=== PATIENT | female | born 1970 | race Caucasian/White ===

== ENCOUNTER 2016-12-26 19:50 | Emergency (ER) | payer OTHER ==
[2016-12-26 20:05] VITALS: BP 140/86; PULSE 92; TEMP 99.8; BMI 54.0
[2016-12-26] MEDS ORDERED: KETOROLAC TROMETHAMINE 60 MG/2 ML VIAL IM ONE (21:25)
[2016-12-26] MEDS ORDERED: KETOROLAC TROMETHAMINE 60 MG/2 ML VIAL ONE (21:26)
--- NOTE | 2016-12-26 21:53 | PDOC ---
History of Present Illness - General Chief Complaint: Pain Stated Complaint: PAIN Time Seen by Provider: 12/26/16 20:59 History Source: Patient Exam Limitations: No Limitations - History of Present Illness Initial Comments: 12/26/16 21:42 Patient is a 46-year-old female, morbidly obese, presents for pain to left jaw and preauricular left pain. Was diagnosed with TMJ, has been evaluated by multiple doctors. Was treated in the past with Augmentin for possible sinus infection, robaxin, and is taking chronic pain management, Percocet for lower back pain. Patient was seen in urgent care and was given valium which seemed to help a little, currently has no more medication. Denies headache, no fever, no palpable masses. There is no facial edema, no erythema, no lymphadenopathy. No visual disturbance. Good ROM to jaw. Reports increased pain for thelast two nights. Patient with multiple piercings to face and lower lip. No signs of cellulitis. Patient laughing in room with mother. Past Medical History: Denies. Allergies: No known allergies Medications: Percocet. Family History: Non-contributory Social History: Denies smoking, alcohol use, or IVDU Review of Systems GENERAL/CONSTITUTIONAL: No fever or chills. No weakness. No weight change. HEAD, EYES, EARS, NOSE AND THROAT: No change in vision. No ear pain or discharge. No sore throat. CARDIOVASCULAR: No chest pain or shortness of breath. RESPIRATORY: No cough, wheezing, or hemoptysis. GASTROINTESTINAL: No nausea, vomiting, diarrhea or constipation. No rectal bleeding. GENITOURINARY: No dysuria, frequency, or change in urination. MUSCULOSKELETAL: No joint or muscle swelling or pain. No neck or back pain. SKIN AND BREASTS: No rash or easy bruising. NEUROLOGIC: No headache, vertigo, loss of consciousness, or loss of sensation. PSYCHIATRIC: No depression or anxiety. ENDOCRINE: No increased thirst. No abnormal weight change. HEMATOLOGIC/LYMPHATIC: No anemia, easy bleeding, or history of blood clots. ALLERGIC/IMMUNOLOGIC: No hives or skin allergy. No latex allergy. Physical Exam: GENERAL: The patient is awake, alert, and fully oriented, in no acute distress. HEAD: Normal with no signs of trauma. EYES: Pupils equal, round and reactive to light, extraocular movements intact, sclera anicteric, conjunctiva clear. ENT: Ears normal, nares patent, oropharynx clear without exudates. Moist mucous membranes. No uvula deviation. Pain only elicited to left side of jaw when opening and closing mouth at the TMJ. No facial edema. No erythema. No sinus pressure or pain NECK: Normal range of motion, supple without lymphadenopathy, JVD, or masses. LUNGS: Breath sounds equal, clear to auscultation bilaterally. No wheezes, and no crackles. HEART: Regular rate and rhythm, normal S1 and S2 without murmur, rub or gallop. ABDOMEN: Soft, nontender, normoactive bowel sounds. No guarding, no rebound. No masses. No bruising or abrasions MUSCULOSKELETAL: Normal range of motion, no edema. No clubbing or cyanosis. No cords, erythema, or tenderness. No CVA Tenderness with fist. NEUROLOGICAL: Cranial nerves II through XII grossly intact. Normal speech, normal gait. PSYCH: Normal mood, normal affect. SKIN: Warm, Dry, normal turgor, no rashes or lesions noted. Past History - Past Medical History Allergies/Adverse Reactions: Allergies Allergy/AdvReac Type Severity Reaction Status Date / Time No Known Allergies Allergy Verified 12/26/16 20:05 Home Medications: Ambulatory Orders Diazepam [Valium] 5 mg PO Q8H #12 tablet MDD 3 12/26/16 Naproxen [Naprosyn -] 500 mg PO BID #20 tablet 12/26/16 Anemia: No Asthma: No Cancer: No Cardiac Disorders: No CVA: No COPD: No CHF: No Dementia: No Diabetes: No GI Disorders: Yes (GERD) Disorders: No HTN: No Hypercholesterolemia: No Liver Disease: No Seizures: No Thyroid Disease: No Other medical history: chronic back pain on percocet 10mg - Surgical History Abdominal Surgery: No Appendectomy: No Cardiac Surgery: No Cholecystectomy: Yes Lung Surgery: No Neurologic Surgery: No Orthopedic Surgery: No - Immunization History Immunization Up to Date: Yes - Suicide/Smoking/Psychosocial Hx Smoking History: Current every day smoker Have you smoked in the past 12 months: Yes Number of Cigarettes Smoked Daily: 15 Information on smoking cessation initiated: No 'Breaking Loose' booklet given: 02/06/15 Hx Alcohol Use: No Drug/Substance Use Hx: No Substance Use Type: None Hx Substance Use Treatment: No *Physical Exam - Vital Signs Last Vital Signs Temp Pulse Resp BP Pulse Ox 99.8 F H 92 H 18 140/86 99 12/26/16 20:02 12/26/16 20:02 12/26/16 20:02 12/26/16 20:02 12/26/16 20:02 ED Treatment Course - Medications Given in the ED: ED Medications Discontinued Medications Generic Name Dose Route Start Last Admin Trade Name Jyoti PRN Reason Stop Dose Admin Ketorolac Tromethamine 60 mg 12/26/16 21:25 12/26/16 21:29 Toradol Injection - IM 12/26/16 21:26 60 mg ONCE ONE Administration Medical Decision Making - Medical Decision Making 12/26/16 22:33 A/P: Patient here for evaluation of chronic TMJ is on chronic pain management which does not seem to be resolving pain in the emergency Department we will give Toradol 60 mg IM and Flexeril 10, will DC patient on Naprosyn and Valium with follow-up with oral maxillofacial surgery. Patient reports that she has an appointment in January. Warm compresses to face also has an appointment with chronic pain management on Wednesday. *DC/Admit/Observation/Transfer Diagnosis at time of Disposition: Chronic TMJ pain - Discharge Dispostion Disposition: HOME Condition at time of disposition: Good Admit: No - Prescriptions Prescriptions: Naproxen [Naprosyn -] 500 mg PO BID #20 tablet Diazepam [Valium] 5 mg PO Q8H #12 tablet MDD 3 - Referrals Referrals: Anna Gonzalez MD [Primary Care Provider] - - Patient Instructions Printed Discharge Instructions: TMJ Syndrome (Alternative Therapy) Additional Instructions: Please follow-up with oral maxillary facial surgery. If any increased fever, facial edema, swelling, redness, or any other concerns return immediately to ER
[2016-12-26] MEDS ORDERED: CYCLOBENZAPRINE HCL 10 MG TABLET (FP) PO ONE (22:22)
[2016-12-26] MEDS ORDERED: CYCLOBENZAPRINE HCL 10 MG TABLET (FP) ONE (22:23)
== END 2016-12-26 22:39 | disposition home or self-care (01) ==
LOC: JERFT 19:50
PROC: 3E0233Z Introduction of Anti-inflammatory into Muscle, Percutaneous Approach (ICD-10-PCS; principal; 2016-12-26)
DX: M26.622 Arthralgia of left temporomandibular joint (principal); F17.210 Nicotine dependence, cigarettes, uncomplicated
CPT/HCPCS: 96372; 99281-25

== ENCOUNTER 2017-04-12 09:54 | Inpatient (IN) | payer OTHER ==
[2017-04-12 10:07] VITALS: BMI 54.0
--- NOTE | 2017-04-12 11:13 | PDOC ---
History of Present Illness - General Chief Complaint: Pain, Acute Stated Complaint: ABD PAIN Time Seen by Provider: 04/12/17 11:06 History Source: Patient Exam Limitations: No Limitations - History of Present Illness Travel History: No Initial Comments: 04/12/17 11:20 46 yr female with known umbilical hernia states she is scheduled for surgery tomorrow with was told by the hospital to come in threw ER for admission. Pt states she has 10/10 pain to the abdomen around the umbilicus. Pt admits to having chills last night denies diarrhea or vomiting . no urinary complaints. medical history of reflux surgical history for csectionx2 gallbladder Past History - Past Medical History Allergies/Adverse Reactions: Allergies Allergy/AdvReac Type Severity Reaction Status Date / Time No Known Allergies Allergy Verified 04/12/17 10:03 Home Medications: Ambulatory Orders Oxycodone HCl/Acetaminophen [Percocet 5-325 mg Tablet] 1 - 2 tab PO Q4H Sumatriptan Succinate [Imitrex -] 50 mg PO PRN 04/12/17 Docusate Sodium [Colace -] 100 mg PO TID #90 capsule 04/13/17 Anemia: No Asthma: No Cancer: No Cardiac Disorders: No CVA: No COPD: No CHF: No Dementia: No Diabetes: No GI Disorders: Yes (GERD) Disorders: No HTN: No Hypercholesterolemia: No Liver Disease: No Seizures: No Thyroid Disease: No - Surgical History Abdominal Surgery: Yes (gallbladder, csection x2 ) Appendectomy: No Cardiac Surgery: No Cholecystectomy: Yes Lung Surgery: No Neurologic Surgery: No Orthopedic Surgery: No - Reproductive History LMP comment: 04/02/17 LMP Normal: Yes Is Patient Now?: No - Immunization History Immunization Up to Date: Yes - Suicide/Smoking/Psychosocial Hx Smoking History: Former smoker Have you smoked in the past 12 months: Yes Number of Cigarettes Smoked Daily: 15 Information on smoking cessation initiated: No 'Breaking Loose' booklet given: 02/06/15 Hx Alcohol Use: No Drug/Substance Use Hx: No Substance Use Type: None Hx Substance Use Treatment: No Review of Systems - Review of Systems Able to Perform ROS?: Yes Is the patient limited Guatemalan proficient: No Constitutional: No: Symptoms Reported HEENTM: No: Symptoms Reported Respiratory: No: Symptoms reported Cardiac (ROS): No: Symptoms Reported ABD/GI: Yes: Symptoms Reported : No: Symptoms Reported Musculoskeletal: No: Symptoms Reported Integumentary: No: Symptoms Reported Neurological: No: Symptoms reported *Physical Exam - Vital Signs Last Vital Signs Temp Pulse Resp BP Pulse Ox 99 F 81 19 148/77 98 04/12/17 10:03 04/12/17 10:03 04/12/17 10:03 04/12/17 10:03 04/12/17 10:03 - Physical Exam General Appearance: Yes: Nourished, Appropriately Dressed, Obese HEENT: positive: EOMI, SEVEN, Normal ENT Inspection, TMs Normal, Pharynx Normal Neck: positive: Supple. negative: Tender Respiratory/Chest: positive: Lungs Clear, Normal Breath Sounds Cardiovascular: positive: Regular Rhythm, Regular Rate Gastrointestinal/Abdominal: positive: Normal Bowel Sounds, Tender (umbilical area ), Soft, Guarding. negative: Rebound Musculoskeletal: positive: Normal Inspection Extremity: positive: Normal Capillary Refill, Normal Inspection, Normal Range of Motion Integumentary: positive: Normal Color, Dry, Warm Neurologic: positive: shoe dresser II-XII NML intact, Fully Oriented, Alert, Normal Mood/ Affect, Normal Response, Motor Strength / ED Treatment Course - LABORATORY CBC & Chemistry Diagram: 04/13/17 16:38 04/12/17 12:00 Medical Decision Making - Medical Decision Making 04/12/17 11:14 cc: abd pain worse the past month sent to ER for hernia repair by 04/12/17 11:19 04/12/17 11:28 spoke with Shannon OPERATING ENGINEER APPRENTICE works with is aware pt is here states to admit to and do preop , pt for OR tomorrow. *DC/Admit/Observation/Transfer Diagnosis at time of Disposition: Intractable abdominal pain - Discharge Dispostion Condition at time of disposition: Fair Admit: Yes - Prescriptions - Referrals - Patient Instructions - Post Discharge Activity
[2017-04-12 12:10] LABS: HEMATOCRIT 42.8 % (32.4-45.2); HEMOGLOBIN 13.7 GM/dL (10.7-15.3); MCH 27.6 pg (25.7-33.7); MCHC 32.1 g/dl (32.0-36.0); MEAN CELL VOLUME 85.9 fl (80-96); MEAN PLT VOLUME 8.4 fl (7.5-11.1); PLATELET COUNT 327 K/MM3 (134-434); RBC 4.98 M/mm3 (3.60-5.2); RDW 14.8 % (11.6-15.6); WHITE BLOOD COUNT 12.5 K/mm3 (4.0-10.0)
--- NOTE | 2017-04-12 12:21 | PDOC ---
*Physical Exam - Vital Signs Last Vital Signs Temp Pulse Resp BP Pulse Ox 99 F 81 19 148/77 98 04/12/17 10:03 04/12/17 10:03 04/12/17 10:03 04/12/17 10:03 04/12/17 10:03 Heart Score/ECG Review #1 General ECG Interpretation: Sinus Rhythm, Normal Rate (69), Normal Intervals ( qtc 420, LVH), No acute ischemic changes (baseline artifact, no acute changes) ED Treatment Course - LABORATORY CBC & Chemistry Diagram: 04/12/17 12:00 04/12/17 12:00 Medical Decision Making - Medical Decision Making 04/12/17 12:18 Patient seen and evaluated with the nurse practitioner. I agree with the overall evaluation, assessment, and management with the following summary of visit: 46-year-old female with worsening symptoms of umbilical hernia, scheduled for or. Labs, pain control Admitted to Dr. Ryan *DC/Admit/Observation/Transfer Diagnosis at time of Disposition: Intractable abdominal pain - Discharge Dispostion Condition at time of disposition: Fair - Referrals - Patient Instructions - Post Discharge Activity
[2017-04-12 12:30] LABS: ALBUMIN 3.4 g/dl (3.4-5.0); ALK PHOS 104 U/L (45-117); ANION GAP 7 (8-16); BILIRUBIN,TOTAL 0.4 mg/dL (0.2-1.0); BLOOD UREA NITROGEN 8 mg/dL (7-18); CALCIUM 8.9 mg/dL (8.5-10.1); CHLORIDE 102 mmol/L (98-107); CO2 30 mmol/L (21-32); CREATININE 0.7 mg/dL (0.55-1.02); GLUCOSE,RANDOM 144 mg/dL (74-106); POTASSIUM 3.7 mmol/L (3.5-5.1); SGOT/AST 8 U/L (15-37); SGPT/ALT 31 U/L (12-78); SODIUM 139 mmol/L (136-145); TOT PROT 7.7 g/dl (6.4-8.2)
[2017-04-12 12:33] LABS: INR 1.14 (0.82-1.09); PROTHROMBIN TIME (PATIENT) 12.9 SEC (9.98-11.88)
[2017-04-12 12:36] LABS: ACTIVATED PTT 27.3 SECONDS (26.9-34.4)
[2017-04-12] MEDS ORDERED: ONDANSETRON 4 MG/2 ML VIAL IVPUSH ONE (12:52)
[2017-04-12] MEDS ORDERED: morphine CARPU-JECT 4 MG/1 ML DISP.SYRIN IVPUSH STA (12:52)
[2017-04-12] MEDS ORDERED: morphine CARPU-JECT 10 MG/1 ML DISP.SYRIN ONE (13:06)
[2017-04-12] MEDS ORDERED: ONDANSETRON 4 MG/2 ML VIAL ONE (13:06)
--- NOTE | 2017-04-12 14:40 | CONSULT ---
Consult Consult Specialty:: internal medicine - History of Present Illness Chief Complaint: abd pain History of Present Illness: was scheduled for umbilical hernia repeair, pain got progressively worse so pt came to er for eval and pain mgmnt. - History Source History Provided By: Patient Limitations to Obtaining History: No Limitations - Past Medical History Gastrointestinal: Yes: Other (h/o H.pylori treated in 2013) ...LMP: 02/27/15 ...LMP Comment: 04/02/17 ...: No Infectious Disease: Yes: MRSA (skin infection in past) Musculoskeletal: Yes: Chronic low back pain Endocrine: Yes: Other (morbid obesity) - Past Surgical History Past Surgical History: Yes: Cholecystectomy, (x2) - Alcohol/Substance Use Hx Alcohol Use: No - Smoking History Smoking history: Former smoker Have you smoked in the past 12 months: Yes Aproximately how many cigarettes per day: 15 - Social History Usual Living Arrangement: With Spouse ADL: Independent History of Recent Travel: No Home Medications - Allergies Allergies/Adverse Reactions: Allergies Allergy/AdvReac Type Severity Reaction Status Date / Time No Known Allergies Allergy Verified 04/12/17 10:03 - Home Medications Home Medications: Ambulatory Orders Oxycodone HCl/Acetaminophen [Percocet 5-325 mg Tablet] 1 - 2 tab PO Q4H Sumatriptan Succinate [Imitrex -] 50 mg PO PRN 04/12/17 Family Disease History - Family Disease History Family Disease History: Diabetes: Mother (cervical ca), Heart Disease: Father, Mother Review of Systems - Review of Systems Neck: reports: No Symptoms Cardiovascular: reports: No Symptoms Respiratory: reports: No Symptoms Gastrointestinal: reports: Abdominal Pain, Diarrhea Musculoskeletal: reports: Back Pain Psychiatric: reports: Anxiety Physical Exam Vital Signs: Vital Signs Temperature 99 F 04/12/17 10:03 Pulse Rate 81 04/12/17 10:03 Respiratory Rate 19 04/12/17 10:03 Blood Pressure 148/77 04/12/17 10:03 O2 Sat by Pulse Oximetry (%) 98 04/12/17 10:03 Constitutional: Yes: Calm, Obese Eyes: Yes: Conjunctiva Clear HENT: Yes: Atraumatic, Normocephalic Neck: Yes: Trachea Midline Cardiovascular: Yes: Regular Rate and Rhythm Respiratory: Yes: CTA Bilaterally Gastrointestinal: Yes: Abdomen, Obese, Hypoactive Bowel Sounds, Other (tender non-reducible umbilical hernia) Labs: CBC, BMP 04/12/17 12:00 04/12/17 12:00 Problem List - Problems (1) Back pain Code(s): M54.9 - DORSALGIA, UNSPECIFIED Qualifiers: Back pain location: low back pain Chronicity: chronic (2) Intractable abdominal pain Code(s): R10.9 - UNSPECIFIED ABDOMINAL PAIN (3) Umbilical hernia without obstruction or gangrene Code(s): K42.9 - UMBILICAL HERNIA WITHOUT OBSTRUCTION OR GANGRENE Assessment/Plan No medical contraindication to ventral hernia repair.
[2017-04-12 17:32] LABS: URINE APPEARANCE SLCLOUDY; URINE BILIRUBIN NEGATIVE (NEGATIVE); URINE BLOOD 1+ (NEGATIVE); URINE COLOR YELLOW; URINE GLUCOSE (UA) NEGATIVE (NEGATIVE); URINE KETONE NEGATIVE (NEGATIVE); URINE LEUK ESTERASE NEGATIVE (NEGATIVE); URINE NITRITE NEGATIVE (NEGATIVE); URINE PROTEIN NEGATIVE (NEGATIVE); URINE UROBILINOGEN NEGATIVE mg/dL (0.2-1.0)
[2017-04-12 17:56] LABS: HCG,QUALITATIVE URINE NEGATIVE
[2017-04-12 18:03] LABS: EPI CELLS FEW /HPF (FEW); URINE HYALINE CAST 2 /lpf; URINE MUCUS MANY
[2017-04-12] MEDS ORDERED: ACETAMINOPHEN 325 MG TABLET (FP) PO PRN (18:52)
[2017-04-12] MEDS: oxyCODONE HCL 5 MG TABLET PO PRN (19:08)
--- NOTE | 2017-04-12 22:01 | EKG ---
Test Reason : Blood Pressure : / mmHG Vent. Rate : 069 BPM Atrial Rate : 069 BPM P-R Int : 152 ms QRS Dur : 102 ms QT Int : 392 ms P-R-T Axes : 009 -18 020 degrees QTc Int : 420 ms NORMAL SINUS RHYTHM MINIMAL VOLTAGE CRITERIA FOR LVH, MAY BE NORMAL VARIANT NONSPECIFIC ST ABNORMALITY ABNORMAL ECG WHEN COMPARED WITH ECG OF 06-FEB-2015 11:25, NO SIGNIFICANT CHANGE WAS FOUND Confirmed by EMILIA WALLACE, WIL ([id number]) on 04/12/2017 10:01:15 PM Referred By: Confirmed By:WIL NIETO MD
[2017-04-13] MEDS: SODIUM CHLORIDE 1,000 ML IV SCH (00:22)
[2017-04-13] MEDS: HYDROmorphone HCL CARPU-JECT 2 MG/1 ML DISP.SYRIN IVPB PRN ×3 (11:32→23:33)
--- NOTE | 2017-04-13 13:00 | HP ---
Admitting History and Physical - Admission Chief Complaint: Umbilical pain History Source: Patient, Medical Record Limitations to Obtaining History: No Limitations - Past Medical History Gastrointestinal: Yes: Other (h/o H.pylori treated in 2013) ...LMP: 04/07/17 ...LMP Comment: 04/02/17 ...: No Infectious Disease: Yes: MRSA (skin infection in past) Musculoskeletal: Yes: Chronic low back pain Endocrine: Yes: Other (morbid obesity) - Past Surgical History Past Surgical History: Yes: Cholecystectomy, (x2) - Smoking History Smoking history: Former smoker Have you smoked in the past 12 months: Yes Aproximately how many cigarettes per day: 15 If you are a former smoker, when did you quit?: 05/2016 - Alcohol/Substance Use Hx Alcohol Use: No - Social History ADL: Independent History of Recent Travel: No Home Medications - Allergies Allergies/Adverse Reactions: Allergies Allergy/AdvReac Type Severity Reaction Status Date / Time No Known Allergies Allergy Verified 04/12/17 10:03 - Home Medications Home Medications: Ambulatory Orders Oxycodone HCl/Acetaminophen [Percocet 5-325 mg Tablet] 1 - 2 tab PO Q4H Sumatriptan Succinate [Imitrex -] 50 mg PO PRN 04/12/17 Docusate Sodium [Colace -] 100 mg PO TID #90 capsule 04/13/17 Family Disease History - Family Disease History Family Disease History: Diabetes: Mother (cervical ca), Heart Disease: Father, Mother Review of Systems - Review of Systems Constitutional: denies: Chills, Fever HENT: reports: No Symptoms Neck: reports: No Symptoms Cardiovascular: denies: Chest Pain Respiratory: denies: Cough Gastrointestinal: reports: Abdominal Pain. denies: Dysphagia, Vomiting Neurological: denies: Change in LOC Pain Intensity: 4 Physical Examination Vital Signs: Vital Signs Temperature 98.4 F 04/13/17 10:00 Pulse Rate 70 04/13/17 10:00 Respiratory Rate 20 04/13/17 10:00 Blood Pressure 105/77 04/13/17 10:00 O2 Sat by Pulse Oximetry (%) 97 04/12/17 21:00 Constitutional: Yes: Calm HENT: Yes: WNL Neck: Yes: Supple Cardiovascular: Yes: Regular Rate and Rhythm Respiratory: Yes: Regular Gastrointestinal: Yes: Soft, Abdomen, Obese, Tenderness (Umbilical), Other (+ Umbilical hernia with tenderness). No: Tenderness, Rebound Neurological: Yes: Alert, Oriented Labs: CBC, BMP 04/12/17 12:00 04/12/17 12:00 Problem List - Problems (1) Intractable abdominal pain Code(s): R10.9 - UNSPECIFIED ABDOMINAL PAIN (2) Umbilical hernia without obstruction or gangrene Code(s): K42.9 - UMBILICAL HERNIA WITHOUT OBSTRUCTION OR GANGRENE Assessment/Plan 46 female with umbilical hernia causing pain For robotic possible open repair with possible mesh Risks and benefits explained Understands and agrees
[2017-04-13] MEDS ORDERED: BUPIVACAINE HCL/PF 0.5% (5MG/ML) 10 ML VIAL ONE (13:24)
[2017-04-13] MEDS ORDERED: MIDAZOLAM HCL 2 MG/2 ML SINGLE DOSE VIAL ONE (13:43)
[2017-04-13] MEDS ORDERED: fentaNYL CITRATE 250 MCG/5 ML VIAL ONE (13:45)
[2017-04-13] MEDS ORDERED: PROPOFOL 20 ML ONE ×2 (13:47→13:55)
[2017-04-13] MEDS ORDERED: ROCURONIUM BROMIDE 50 MG/5 ML VIAL ONE ×2 (13:47→14:54)
[2017-04-13] MEDS ORDERED: SUCCINYLCHOLINE CHLORIDE 200 MG/10 ML VIAL ONE (13:47)
[2017-04-13] MEDS ORDERED: ceFAZolin SODIUM 1 GM VIAL IVPB ONE (13:55)
[2017-04-13] MEDS ORDERED: LIDOCAINE HCL/PF 2% SDV 5ML VIAL ONE (14:09)
[2017-04-13] MEDS ORDERED: DEXAMETHASONE SOD PHOSPHATE 4 MG/1 ML VIAL ONE (14:09)
[2017-04-13] MEDS ORDERED: LIDOCAINE HCL 2% JELLY (5 ML/TUBE) ONE (14:09)
[2017-04-13] MEDS ORDERED: GLYCOPYRROLATE 0.2 MG/1 ML VIAL ONE ×2 (14:09→15:31)
[2017-04-13] MEDS ORDERED: ceFAZolin SODIUM 1 GM VIAL ONE (14:10)
[2017-04-13] MEDS ORDERED: NEOSTIGMINE METHYLSULFATE 0.5 MG/ML - 10 ML MDV ONE (15:32)
[2017-04-13] MEDS ORDERED: KETOROLAC TROMETHAMINE 30 MG/1 ML VIAL ONE (15:35)
--- NOTE | 2017-04-13 15:43 | OP ---
Operative Note - Note: Operative Date: 04/13/17 Pre-Operative Diagnosis: Incarcerated umbilical hernia Operation: Robotic incarcerated umbilical hernia repair with mesh. Robotic incarcerated incisional hernia repair with mesh. Diagnostic laparoscopy. Robotic extensive lysis of adhesions Findings: Incarcerated umbilical and incisional hernias Post-Operative Diagnosis: Other (Incarcerated umbilical hernia, incarcerated incisional hernia) Surgeon: Cali Ryan Insurance Assistant: Caroline Peralta Anesthesia: General Specimens Removed: None Estimated Blood Loss (mls): 5 Operative Report Dictated: Yes
[2017-04-13] MEDS ORDERED: ONDANSETRON 4 MG/2 ML VIAL IVPB PRN (15:44)
[2017-04-13] MEDS ORDERED: ONDANSETRON 4 MG/2 ML VIAL IVPUSH PRN (15:52)
[2017-04-13] MEDS ORDERED: HYDROmorphone HCL CARPU-JECT 2 MG/1 ML DISP.SYRIN ONE (15:53)
[2017-04-13] MEDS: HYDROmorphone HCL CARPU-JECT 2 MG/1 ML DISP.SYRIN IVPUSH PRN ×4 (15:53→16:23)
--- NOTE | 2017-04-13 16:25 | SURG ---
Surgery Implant Polisher Note Implant Polisher: Caroline Peralta PA-C Date of Service: 04/13/17 Diagnosis: Incarcerated umbilical hernia Procedure: Robotic incarcerated umbilical hernia repair with mesh. Robotic incarcerated incisional hernia repair with mesh. I was present for the entirety of the operative procedure. For further detail, please refer to operative report. Visit type - Case Type Case Type: ED Admission - Emergency Emergency Visit: Yes ED Registration Date: 04/12/17 Care time: The patient presented to the Emergency Department on the above date and was hospitalized for further evaluation of their emergent condition. - New patient This patient is new to me today: Yes Date on this admission: 04/13/17
[2017-04-13 16:58] LABS: BASO % 0.2 % (0-2.0); EOS % 0.3 % (0-4.5); HEMATOCRIT 40.8 % (32.4-45.2); HEMOGLOBIN 13.4 GM/dL (10.7-15.3); LYMPH % 7.8 % (8-40); MCH 28.6 pg (25.7-33.7); MCHC 32.9 g/dl (32.0-36.0); MEAN CELL VOLUME 86.9 fl (80-96); MEAN PLT VOLUME 8.7 fl (7.5-11.1); MONO % 2.3 % (3.8-10.2); NEUT % 89.4 % (42.8-82.8); PLATELET COUNT 307 K/MM3 (134-434); RDW 15.2 % (11.6-15.6)
[2017-04-13 17:26] LABS: ANION GAP 10 (8-16); BLOOD UREA NITROGEN 10 mg/dL (7-18); CALCIUM 8.2 mg/dL (8.5-10.1); CHLORIDE 106 mmol/L (98-107); CO2 25 mmol/L (21-32); CREATININE 0.7 mg/dL (0.55-1.02); GLUCOSE,RANDOM 128 mg/dL (74-106); POTASSIUM 3.9 mmol/L (3.5-5.1); SODIUM 141 mmol/L (136-145)
[2017-04-13] MEDS: LACTATED RINGERS SOLUTION 1,000 ML IV SCH (18:47)
[2017-04-14] MEDS: HYDROmorphone HCL CARPU-JECT 2 MG/1 ML DISP.SYRIN IVPB PRN (05:23)
[2017-04-14] MEDS: SODIUM CHLORIDE 1,000 ML IV SCH (06:06)
[2017-04-14 08:27] LABS: BASO % 0.2 % (0-2.0); HEMATOCRIT 41.4 % (32.4-45.2); HEMOGLOBIN 13.1 GM/dL (10.7-15.3); LYMPH % 13.9 % (8-40); MCH 27.3 pg (25.7-33.7); MCHC 31.5 g/dl (32.0-36.0); MEAN CELL VOLUME 86.5 fl (80-96); MEAN PLT VOLUME 8.9 fl (7.5-11.1); MONO % 5.5 % (3.8-10.2); NEUT % 80.4 % (42.8-82.8); PLATELET COUNT 342 K/MM3 (134-434); RBC 4.79 M/mm3 (3.60-5.2); RDW 15.1 % (11.6-15.6); WHITE BLOOD COUNT 16.3 K/mm3 (4.0-10.0)
--- NOTE | 2017-04-14 08:33 | PN ---
Progress Note (short form) - Note Progress Note: s/p surgery tolerated procedure well. Vital Signs Period Temp Pulse Resp BP Sys/Corbett Pulse Ox Last 24 Hr 98 F-98.7 F 62-84 16-20 94-127/44-86 94-96 S1S2 RRR lungs cta abd in binder, tender no edema aaox3 s/p robotic incarcerated umbilical hernia repair with mesh POD#1 morbid obesity medically stable dc planning as per sg. Problem List - Problems (1) Back pain Code(s): M54.9 - DORSALGIA, UNSPECIFIED Qualifiers: Back pain location: low back pain Chronicity: chronic (2) Intractable abdominal pain Code(s): R10.9 - UNSPECIFIED ABDOMINAL PAIN (3) Umbilical hernia without obstruction or gangrene Code(s): K42.9 - UMBILICAL HERNIA WITHOUT OBSTRUCTION OR GANGRENE
[2017-04-14 09:08] LABS: CHLORIDE 103 mmol/L (98-107); POTASSIUM 4.2 mmol/L (3.5-5.1); SODIUM 137 mmol/L (136-145)
[2017-04-14 09:12] LABS: ANION GAP 9 (8-16); BLOOD UREA NITROGEN 12 mg/dL (7-18); CALCIUM 8.5 mg/dL (8.5-10.1); CO2 25 mmol/L (21-32); CREATININE 0.6 mg/dL (0.55-1.02); GLUCOSE,RANDOM 105 mg/dL (74-106)
--- NOTE | 2017-04-14 09:15 | OP ---
DATE OF OPERATION: 04/13/2017 SURGEON: Cali Ryan MD INDUSTRIAL ELECTRICAL TECHNICIAN: HALLIE Aggarwal PREOPERATIVE DIAGNOSIS: Incarcerated umbilical hernia. POSTOPERATIVE DIAGNOSES: 1. Incarcerated umbilical hernia. 2. Incarcerated incisional hernia. 3. Intra-abdominal adhesions. PROCEDURE: Diagnostic laparoscopy, robotic extensive lysis of adhesions, robotic repair of incarcerated umbilical hernia with mesh, robotic repair of incarcerated incisional hernia with mesh. SPECIMENS: None. ESTIMATED BLOOD LOSS: 5 mL DRAINS: None. ANESTHESIA: GET. REASON FOR PROCEDURE: This is a 46-year-old female who presented to the emergency room for abdominal pain. The pain was located near the level of her umbilicus. On exam, she was noted to have a hernia that was consistent with an umbilical hernia with pain and incarceration. Because of this, she was consented for robotic, possible open repair of her incarcerated umbilical hernia with possible mesh, possible open. The risks and benefits of the procedure were explained. These included bleeding, infection, recurrence of hernia, DE, DVT, PE, injury to surrounding abdominal structures, seroma, hematoma, injury to bowel, fistula, perforation as some of the complications. She understood and signed informed consent. DESCRIPTION OF PROCEDURE: Patient was placed supine on the operating room table. Patient underwent general endotracheal intubation. The patient was placed in a fitzpatrick bag device, and a bump was placed under the left portion of her back. The area was prepped and draped in usual sterile fashion. Timeout was performed. Incision was made in the left lateral abdominal wall. Veress needle was inserted. Pneumoperitoneum was established. Subsequently, the Veress needle was removed, and an 8-mm robotic optical trocar was placed under direct visualization with a laparoscope. Two subsequent 8-mm robotic trocars were placed, one in the left lower quadrant and one in the left upper quadrant. The robot was brought over to the field and docked. At the console, dissection was performed. It was immediately noted there were dense intra-abdominal adhesions. Extensive lysis of adhesions was performed robotically. This was needed in order to visualize the hernia as well as to reduce all hernia contents which included both omentum as well as bowel. In addition, there were noted to be 2 hernia defects, not one. This was at the level of the umbilicus as well as superiorly near level of the prior incision. Both hernia contents were reduced and the fascia freed circumferentially. At this point, both fascial defects were closed using a No. 1 V-Loc suture. The fascia was noted to be reapproximated well. A 15 cm x 10 cm Symbotex mesh was then chosen and inserted into the abdominal cavity. This was secured circumferentially using AbsorbaTacks covering both sites of hernia repair. Hemostasis was noted. The mesh was noted to be in good position. Pneumoperitoneum was desufflated. All trocars were removed. The skin incisions were closed with 4-0 Biosyn. Marcaine was injected. Sterile dressings were applied. An abdominal binder was applied. The patient tolerated the procedure well, was transferred to recovery room in stable condition. Timo [id number]
--- NOTE | 2017-04-14 09:37 | DS ---
Physical Exam: SUBJECTIVE: POD#1 robotic assisted incisional hernia repair with mesh. Patient seen and examined at bedside with no complaints. Patient states pain is controlled and she is ambulating, voiding and tolerating a regular diet. She denies any CP, SOB, N/V/D, or dizziness. OBJECTIVE: Vital Signs Temperature 98 F 04/14/17 05:57 Pulse Rate 62 04/14/17 05:57 Respiratory Rate 20 04/14/17 05:57 Blood Pressure 127/86 04/14/17 05:57 O2 Sat by Pulse Oximetry (%) 96 04/13/17 21:00 PHYSICAL EXAM GENERAL: The patient is awake, alert, and fully oriented, in no acute distress. HEAD: Normal with no signs of trauma. EYES: PERRL, extraocular movements intact, sclera anicteric, conjunctiva clear. NECK: Trachea midline, full range of motion, supple. LUNGS: unlabored resp on RA with no accessory muscle use. ABDOMEN: Obese, Soft, mildly tender to palpation appropriate to status, nondistended, Incisions c/d/i with no evidence of d/c, surrounding tissue intact EXTREMITIES: 2+ pulses, warm, well-perfused NEUROLOGICAL: Cranial nerves II through XII grossly intact. Normal speech, gait not observed. PSYCH: Normal mood, normal affect. SKIN: Warm, dry, normal turgor, no rashes or lesions noted. LABS CBC,CMP WBC 16.3 K/mm3 (4.0-10.0) H 04/14/17 06:30 RBC 4.79 M/mm3 (3.60-5.2) 04/14/17 06:30 Hgb 13.1 GM/dL (10.7-15.3) 04/14/17 06:30 Hct 41.4 % (32.4-45.2) 04/14/17 06:30 MCV 86.5 fl (80-96) 04/14/17 06:30 MCH 27.3 pg (25.7-33.7) 04/14/17 06:30 MCHC 31.5 g/dl (32.0-36.0) L 04/14/17 06:30 RDW 15.1 % (11.6-15.6) 04/14/17 06:30 Plt Count 342 K/MM3 (134-434) 04/14/17 06:30 MPV 8.9 fl (7.5-11.1) 04/14/17 06:30 Neutrophils % 80.4 % (42.8-82.8) 04/14/17 06:30 Lymphocytes % 13.9 % (8-40) D 04/14/17 06:30 Monocytes % 5.5 % (3.8-10.2) D 04/14/17 06:30 Eosinophils % 0.0 % (0-4.5) D 04/14/17 06:30 Basophils % 0.2 % (0-2.0) 04/14/17 06:30 Sodium 137 mmol/L (136-145) 04/14/17 06:30 Potassium 4.2 mmol/L (3.5-5.1) 04/14/17 06:30 Chloride 103 mmol/L (98-107) 04/14/17 06:30 Carbon Dioxide 25 mmol/L (21-32) 04/14/17 06:30 Anion Gap 9 (8-16) 04/14/17 06:30 BUN 12 mg/dL (7-18) 04/14/17 06:30 Creatinine 0.6 mg/dL (0.55-1.02) 04/14/17 06:30 Creat Clearance w eGFR > 60 (>60) 04/12/17 12:00 Random Glucose 105 mg/dL (74-106) 04/14/17 06:30 Calcium 8.5 mg/dL (8.5-10.1) 04/14/17 06:30 Total Bilirubin 0.4 mg/dL (0.2-1.0) 04/12/17 12:00 AST 8 U/L (15-37) L 04/12/17 12:00 ALT 31 U/L (12-78) 04/12/17 12:00 Alkaline Phosphatase 104 U/L (45-117) 04/12/17 12:00 Total Protein 7.7 g/dl (6.4-8.2) 04/12/17 12:00 Albumin 3.4 g/dl (3.4-5.0) 04/12/17 12:00 HOSPITAL COURSE: Date of Admission:04/12/17 Date of Discharge: 04/14/17 The patient was admitted to the Med-Surg Unit after an elective repair of her incisional hernia. Now, s/p Hernia repair with mesh. The day of surgery, the patient ambulated the hallways with assistance. Narcotic and non-narcotic pain management control was achieved with an oral and IV approach. Jennifer-operative IV ABX were administered. DVT prophylaxis was achieved with SCDs and early ambulation. The patient ambulated with Physical Therapy and no services were recommended upon discharge. Narcotic scripts and or muscle relaxants were checked with [facility] prior to escribe. The discharge instructions and an oral pain management plan were reviewed with the patient. All questions answered. Above plan discussed with Dr. Ryan and agreed. Minutes to complete discharge: 15 Visit type - Case Type Case Type: ED Admission - Emergency Emergency Visit: Yes ED Registration Date: 04/12/17 Care time: The patient presented to the Emergency Department on the above date and was hospitalized for further evaluation of their emergent condition. - New patient This patient is new to me today: Yes Date on this admission: 04/14/17
[2017-04-14] MEDS: oxyCODONE HCL 5 MG TABLET PO PRN ×4 (09:43→22:13)
[2017-04-14 16:11] LABS: HEMATOCRIT 39.4 % (32.4-45.2); HEMOGLOBIN 12.5 GM/dL (10.7-15.3); MCH 27.5 pg (25.7-33.7); MCHC 31.8 g/dl (32.0-36.0); MEAN CELL VOLUME 86.5 fl (80-96); MEAN PLT VOLUME 8.9 fl (7.5-11.1); PLATELET COUNT 319 K/MM3 (134-434); RBC 4.55 M/mm3 (3.60-5.2); RDW 14.9 % (11.6-15.6); WHITE BLOOD COUNT 17.6 K/mm3 (4.0-10.0)
--- NOTE | 2017-04-14 19:24 | PN ---
Progress Note (short form) - Note Progress Note: POD1 Pain controlled Tolerating diet Vital Signs Period Temp Pulse Resp BP Sys/Corbett Pulse Ox Last 24 Hr 98 F-98.7 F 62-92 18-20 102-137/61-93 96-96 Abd soft, postop tenderness, abdominal binder in place CBC, BMP 04/14/17 15:10 04/14/17 06:30 CBC in am Incentive spirometer Ambulation Problem List - Problems (1) Intractable abdominal pain Code(s): R10.9 - UNSPECIFIED ABDOMINAL PAIN (2) Umbilical hernia without obstruction or gangrene Code(s): K42.9 - UMBILICAL HERNIA WITHOUT OBSTRUCTION OR GANGRENE
[2017-04-15] MEDS: oxyCODONE HCL 5 MG TABLET PO PRN ×2 (04:16→09:19)
[2017-04-15 07:48] LABS: HEMATOCRIT 40.8 % (32.4-45.2); MCH 27.6 pg (25.7-33.7); MCHC 31.8 g/dl (32.0-36.0); MEAN CELL VOLUME 86.8 fl (80-96); MEAN PLT VOLUME 8.6 fl (7.5-11.1); PLATELET COUNT 306 K/MM3 (134-434); RBC 4.71 M/mm3 (3.60-5.2); WHITE BLOOD COUNT 11.7 K/mm3 (4.0-10.0)
[2017-04-15 09:16] VITALS: BP 124/78; TEMP 98.4
[2017-04-15] MEDS: LACTATED RINGERS SOLUTION 1,000 ML IV SCH (09:16)
[2017-04-15 09:59] VITALS: PULSE 68
== END 2017-04-15 11:23 | disposition home or self-care (01) | DRG 228 ==
LOC: JER 09:54 → JERBED 11:43 → J8W 17:14
PROVIDERS: ADMIT Surgery; ATTEND Surgery
PROC: 8E0W4CZ Robotic Assisted Procedure of Trunk Region, Percutaneous Endoscopic Approach (ICD-10-PCS; 2017-04-13)
PROC: 0DNU4ZZ Release Omentum, Percutaneous Endoscopic Approach (ICD-10-PCS; 2017-04-13)
PROC: 0WUF4JZ Supplement Abdominal Wall with Synthetic Substitute, Percutaneous Endoscopic Approach (ICD-10-PCS; principal; 2017-04-13 13:00)
DX: K42.0 Umbilical hernia with obstruction, without gangrene (principal); K43.0 Incisional hernia with obstruction, without gangrene; K66.0 Peritoneal adhesions (postprocedural) (postinfection); K21.9 Gastro-esophageal reflux disease without esophagitis; E66.01 Morbid (severe) obesity due to excess calories; Z68.43 Body mass index [BMI] 50.0-59.9, adult; Z87.891 Personal history of nicotine dependence; M54.5 Low back pain
CPT/HCPCS: 36415; 80048; 80053; 81003; 81015; 84703; 85025; 85027; 85610; 85730; 86850; 86900; 86901; 93005; 93010; 94760; 99283-25

== ENCOUNTER 2017-09-12 23:52 | Emergency (ER) | payer OTHER ==
--- NOTE | 2017-09-13 01:28 | PDOC ---
History of Present Illness - General Chief Complaint: Pain Stated Complaint: PAIN Time Seen by Provider: 09/13/17 00:34 - History of Present Illness Initial Comments: 09/13/17 01:20 47 yo F with h/o DM, periodontal disease, L sided TMJ, and L sided TN who p/w L jaw and facial pain. Patient reports one year of worsening left sided jaw pain, and progressive L sided jaw clicking, pain with mastification, bruxism, jaw locking, ear pain. Patient also endorses sharp shooting left sided paroxysms of pain, with no identifiable trigger, worsening in severity and frequency. States that she was recently started on Oxycacarbazepine to treat both TMJ and TN. Patient seen at her neurologist Dr. Gary Graf ( 09/10/17) and started on Oxycarbazepine 150 mg TID. Pending outpatient MRI to evaluate L sided TM joint and soft tissue. Denies jaw/face trauma or surgery Denies F/C, oral discharge, vision change, hearing loss, tinnnitus, GUERRERO, N/V, CP, SOB, abdominal pain, diarrhea, constipation, urinary complaints, weakness, lightheadedness, sensory changes. PMHx: as noted above. H/o migraines treated with Imitrex. ROS: as noted above SHx: Tobacco cessation 1 1/2 years ago. Denies Etoh, IVDA. Allergies: NKDA Past History - Past Medical History Allergies/Adverse Reactions: Allergies Allergy/AdvReac Type Severity Reaction Status Date / Time No Known Allergies Allergy Verified 09/13/17 00:35 Home Medications: Ambulatory Orders Oxycodone HCl/Acetaminophen [Percocet 5-325 mg Tablet] 1 - 2 tab PO Q4H Sumatriptan Succinate [Imitrex -] 50 mg PO PRN 04/12/17 Docusate Sodium [Colace -] 100 mg PO TID #90 capsule 04/13/17 Anemia: No Asthma: No Cancer: No Cardiac Disorders: No CVA: No COPD: No CHF: No Dementia: No Diabetes: No GI Disorders: Yes (GERD) Disorders: No HTN: No Hypercholesterolemia: No Liver Disease: No Seizures: No Thyroid Disease: No - Surgical History Abdominal Surgery: Yes (gallbladder, csection x2 ) Appendectomy: No Cardiac Surgery: No Cholecystectomy: Yes Lung Surgery: No Neurologic Surgery: No Orthopedic Surgery: No - Immunization History Immunization Up to Date: Yes - Suicide/Smoking/Psychosocial Hx Smoking History: Never smoked Have you smoked in the past 12 months: No Number of Cigarettes Smoked Daily: 15 If you are a former smoker, when did you quit?: 05/2016 Information on smoking cessation initiated: No 'Breaking Loose' booklet given: 02/06/15 Hx Alcohol Use: No Drug/Substance Use Hx: No Substance Use Type: None Hx Substance Use Treatment: No Review of Systems - Review of Systems Comments:: 09/13/17 01:41 GENERAL/CONSTITUTIONAL: No fever or chills. No weakness. HEAD, EYES, EARS, NOSE AND THROAT:+ Left jaw and face pain. No change in vision. No ear pain or discharge. No sore throat. CARDIOVASCULAR: No chest pain or shortness of breath RESPIRATORY: No cough, wheezing, or hemoptysis. GASTROINTESTINAL: No nausea, vomiting, diarrhea or constipation. GENITOURINARY: No dysuria, frequency, or change in urination. MUSCULOSKELETAL: No joint or muscle swelling or pain. No neck or back pain. SKIN: No rash NEUROLOGIC: No headache, vertigo, loss of consciousness, or change in strength/ sensation. ENDOCRINE: No increased thirst. No abnormal weight change HEMATOLOGIC/LYMPHATIC: No anemia, easy bleeding, or history of blood clots. ALLERGIC/IMMUNOLOGIC: No hives or skin allergy. *Physical Exam - Vital Signs Last Vital Signs Temp Pulse Resp BP Pulse Ox 98.6 F 90 20 132/83 97 09/12/17 23:55 09/12/17 23:55 09/12/17 23:55 09/12/17 23:55 09/12/17 23:55 - Physical Exam Comments: 09/13/17 01:42 GENERAL: Awake, alert, and fully oriented, in no acute distress HEAD: No signs of trauma, normocephalic, atraumatic EYES: PERRLA, EOMI, sclera anicteric, conjunctiva clear ENT: L sided TMJ ttp, and reproducible clicking of left TMJ. Poor dentition. Maxillary incisions intact with absent upper row of teeth. Hearing grossly normal, nares patent, oropharynx clear without exudates. Moist mucosa, NECK: Normal ROM, supple, no lymphadenopathy, JVD, or masses LUNGS: No distress, speaks full sentences, clear to auscultation bilaterally HEART: Regular rate and rhythm, normal S1 and S2, no murmurs, rubs or gallops, peripheral pulses normal and equal bilaterally. ABDOMEN: Soft, nontender, normoactive bowel sounds. No guarding, no rebound. No masses EXTREMITIES : Normal inspection, Normal range of motion, no edema. No clubbing or cyanosis. SKIN: Warm, Dry, normal turgor, no rashes or lesions noted Medical Decision Making - Medical Decision Making 09/13/17 01:28 47 yo F with h/o DM, periodontal disease, L sided TMJ, and L sided TN who p/w L jaw and facial pain. VSS, AF. No evidence of dental abscess on physical exam. Mastoid non tender to palpation on physical exam. Low suspicion of mastoiditis. No clinical s/s of deep space/soft tissue infection. Denies visual loss or change, despite having temporal ttp. Duration of symptoms and absence of visual complaints, make temporal arteritis unlikely. No evidence of external OM, or bells palsy S/s consistent with temperomandibular joint disease. Patient also with superimposed trigeminal nerualgia currently being treated with oxycarbazepine. Will evaluate the need for imaging to r/o secondary or anatomical/structrual cause of trigeminal nerualgia such as mass, or infection. ED Course: 09/13/17 01:47 Robaxon, Toradol 60 mg IM *DC/Admit/Observation/Transfer Diagnosis at time of Disposition: Chronic TMJ pain - Discharge Dispostion Disposition: HOME Condition at time of disposition: Stable Decision to Admit order: No - Referrals - Patient Instructions Printed Discharge Instructions: DI for Temporomandibular Disorder Additional Instructions: Please return to the emergency department with any new or worsening symptoms or concerns. Please follow up with your primary care physician within 72 hours. - Post Discharge Activity - Attestations Physician Attestion: 09/13/17 01:45 I attest to the information provided in this note.
[2017-09-13] MEDS ORDERED: KETOROLAC TROMETHAMINE 60 MG/2 ML VIAL IM ONE (01:46)
[2017-09-13] MEDS ORDERED: METHOCARBAMOL 500 MG TABLET PO ONE (01:46)
[2017-09-13 01:51] VITALS: BP 132/83; PULSE 90; TEMP 98.6; BMI 57.9
[2017-09-13] MEDS ORDERED: METHOCARBAMOL 500 MG TABLET ONE (01:52)
[2017-09-13] MEDS ORDERED: KETOROLAC TROMETHAMINE 60 MG/2 ML VIAL ONE (01:52)
[2017-09-13] MEDS ORDERED: ALBUTEROL SO4 2.5/IPRATROPIUM 0.5 INH SOL 3 ML VIAL.NEB. NEB ONE (01:52)
== END 2017-09-13 03:33 | disposition home or self-care (01) ==
LOC: JER 23:52
PROC: 3E0233Z Introduction of Anti-inflammatory into Muscle, Percutaneous Approach (ICD-10-PCS; principal; 2017-09-12)
DX: M26.622 Arthralgia of left temporomandibular joint (principal); G89.29 Other chronic pain; E11.9 Type 2 diabetes mellitus without complications
CPT/HCPCS: 96372; 99281-25

== ENCOUNTER 2017-11-07 05:38 | Emergency (ER) | payer OTHER ==
[2017-11-07 06:18] VITALS: BMI 54.1
--- NOTE | 2017-11-07 06:28 | PDOC ---
History of Present Illness - General Chief Complaint: Migraine Headache Stated Complaint: HEADACHE Time Seen by Provider: 11/07/17 06:27 History Source: Patient, Old Records Exam Limitations: No Limitations - History of Present Illness Initial Comments: 11/07/17 06:27 HISTORY OF PRESENT ILLNESS: Social 47-year-old woman with past medical history of migraines and TMJ who presents emergency Department with left-sided headache for the past since 12 noon on 11/06. Patient states the pain came on suddenly positive experience severe left-sided headache worse over the left hindu. Patient reports feeling nauseous and one episode of vomiting since that time. She took a Percocet when she had onset of symptoms which had minimal relief of pain. Patient denies any dizziness, blurry vision, chest pain, shortness of breath, abdominal pain. Patient's neurologist is Dr. Graf No recent travel or sick contacts. PAST MEDICAL HISTORY: see HPI SURGICAL HISTORY: x2 ALLERGIES: No known drug allergies REVIEW OF SYSTEMS General/Constitutional: Denies fever or chills. Denies weakness, weight change. HEENT: Denies change in vision. Denies ear pain or discharge. Denies sore throat. Cardiovascular: Denies chest pain or shortness of breath. Respiratory: Denies cough, wheezing, or hemoptysis. Gastrointestinal: Denies nausea, vomiting, diarrhea or constipation. Denies rectal bleeding. Genitourinary: Denies dysuria, frequency, or change in urination. Musculoskeletal: Denies joint or muscle swelling or pain. Denies neck or back pain. Skin and breasts: Denies rash or easy bruising. Neurologic: Left sided headache. Denies vertigo, loss of consciousness, or loss of sensation. Psychiatric: Denies depression or anxiety. Endocrine: Denies increased thirst. Denies abnormal weight change. Hematologic/Lymphatic: Denies anemia, easy bleeding, or history of blood clots. Allergic/Immunologic: Denies hives or skin allergy. Denies latex allergy. PHYSICAL EXAM General Appearance: Well-appearing, appropriately dressed. No apparent distress , no intoxication. HEENT: EOMI, PERRLA, normal ENT inspection, normal voice, TMs normal, pharynx normal. No conjunctival pallor. No photophobia, scleral icterus. Neck: Supple. Trachea midline. No tenderness, rigidity, carotid bruit, stridor , lymphadenopathy, or thyromegaly. Respiratory/Chest: Lungs CTAB. No shortness of breath, chest tenderness, respiratory distress, accessory muscle use. No crackles, rales, rhonchi, stridor , wheezing, dullness Cardiovascular: RRR. S1, S2. No JVD, murmur, bradycardia, tachycardia. Vascular Pulses: Dorsalis-Pedis (R): 2+, Dorsalis-Pedis (L): 2+ Gastrointestinal/Abdominal: Normal bowel sounds. Abdomen soft, non-distended. No tenderness or rebound tenderness. No organomegaly, pulsatile mass, guarding , hernia, hepatomegaly, splenomegaly. Lymphatic: No adenopathy, tenderness. Musculoskeletal/Extremities: Normal inspection. FROM of all extremities, normal capillary refill. Pelvis Stable. No CVA tenderness. No tenderness to extremities, pedal edema, swelling, erythema or deformity. Integumentary: Appropriate color, dry, warm. 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 Fully oriented, alert. Appropriate mood/affect. Motor strength 5/5. No appreciable EOM palsy, facial droop or sensory deficit. Past History - Past Medical History Allergies/Adverse Reactions: Allergies Allergy/AdvReac Type Severity Reaction Status Date / Time No Known Allergies Allergy Verified 11/07/17 06:16 Home Medications: Ambulatory Orders Oxycodone HCl/Acetaminophen [Percocet 5-325 mg Tablet] 1 - 2 tab PO Q4H Sumatriptan Succinate [Imitrex -] 50 mg PO PRN 04/12/17 Docusate Sodium [Colace -] 100 mg PO TID #90 capsule 04/13/17 Anemia: No Asthma: No Cancer: No Cardiac Disorders: No CVA: No COPD: No CHF: No Dementia: No Diabetes: No GI Disorders: Yes (GERD) Disorders: No HTN: No Hypercholesterolemia: No Liver Disease: No Seizures: No Thyroid Disease: No - Surgical History Abdominal Surgery: Yes (gallbladder, csection x2 ) Appendectomy: No Cardiac Surgery: No Cholecystectomy: Yes Lung Surgery: No Neurologic Surgery: No Orthopedic Surgery: No - Immunization History Immunization Up to Date: Yes - Suicide/Smoking/Psychosocial Hx Smoking History: Current every day smoker Have you smoked in the past 12 months: No Number of Cigarettes Smoked Daily: 6 If you are a former smoker, when did you quit?: 05/2016 Information on smoking cessation initiated: No 'Breaking Loose' booklet given: 02/06/15 Hx Alcohol Use: No Drug/Substance Use Hx: No Substance Use Type: None Hx Substance Use Treatment: No *Physical Exam - Vital Signs Last Vital Signs Temp Pulse Resp BP Pulse Ox 98.9 F 73 20 155/77 95 11/07/17 06:16 11/07/17 06:16 11/07/17 06:16 11/07/17 06:16 11/07/17 06:16 Medical Decision Making - Medical Decision Making 11/07/17 06:40 A/P: 48-year-old woman with history of migraines and TMJ with left sided headache for 18 hours consistent with her usual migraine No photophobia EOMI PERRLA Cranial nerves II through XII grossly intact Gait steady No TMJ tenderness with articulation of mandible Patient states she had a CT scan of her head performed [address] Graf. This is most likely migraine Urine, IV, normal saline, Benadryl, Reglan, Toradol 11/07/17 07:11 Patient signed out to HALLIE Veloz. *DC/Admit/Observation/Transfer Diagnosis at time of Disposition: Migraine - Referrals - Patient Instructions - Post Discharge Activity
[2017-11-07] MEDS ORDERED: KETOROLAC TROMETHAMINE 30 MG/1 ML VIAL IVPUSH ONE (06:39)
[2017-11-07] MEDS ORDERED: METOCLOPRAMIDE HCL INJECTION 10 MG/2 ML VIAL IVPUSH ONE (06:39)
[2017-11-07] MEDS ORDERED: SODIUM CHLORIDE 1,000 ML IV STA (06:39)
[2017-11-07] MEDS ORDERED: KETOROLAC TROMETHAMINE 30 MG/1 ML VIAL ONE (06:49)
[2017-11-07] MEDS ORDERED: METOCLOPRAMIDE HCL INJECTION 10 MG/2 ML VIAL ONE (06:49)
[2017-11-07 07:04] LABS: URINE APPEARANCE CLEAR; URINE BILIRUBIN NEGATIVE (<2.0 mg/dL); URINE COLOR YELLOW; URINE GLUCOSE (UA) NEGATIVE (NEGATIVE); URINE KETONE NEGATIVE (NEGATIVE); URINE LEUK ESTERASE NEGATIVE (NEGATIVE); URINE NITRITE NEGATIVE (NEGATIVE); URINE PROTEIN NEGATIVE (NEGATIVE); URINE UROBILINOGEN NEGATIVE mg/dL (0.2-1.0)
[2017-11-07 07:08] LABS: HCG,QUALITATIVE URINE NEGATIVE
[2017-11-07 07:09] LABS: EPI CELLS FEW /HPF (FEW); URINE BACTERIA RARE /hpf (NONE SEEN); URINE MUCUS MODERATE
--- NOTE | 2017-11-07 09:35 | PDOC ---
ED Treatment Course - ADDITIONAL ORDERS Additional order review: Laboratory Results 11/07/17 06:36 Urine Color Yellow Urine Appearance Clear Urine pH 6.0 Ur Specific Woodrow 1.018 Urine Protein Negative Urine Glucose (UA) Negative Urine Ketones Negative Urine Blood 1+ H Urine Nitrite Negative Urine Bilirubin Negative Urine Urobilinogen Negative Ur Leukocyte Esterase Negative Urine WBC (Auto) 2 Urine RBC (Auto) 1 Ur Epithelial Cells Few Urine Bacteria Rare Urine Mucus Moderate Urine HCG, Qual Negative - Medications Given in the ED: ED Medications Discontinued Medications Generic Name Dose Route Start Last Admin Trade Name Jyoti PRN Reason Stop Dose Admin Diphenhydramine HCl 25 mg 11/07/17 06:39 11/07/17 06:54 Benadryl Injection - IVPUSH 11/07/17 06:40 25 mg ONCE ONE Administration Sodium Chloride 1,000 mls @ 1,000 mls/hr 11/07/17 06:39 11/07/17 06:48 Normal Saline - IV 11/07/17 07:38 1,000 mls/hr ASDIR STA Administration Ketorolac Tromethamine 30 mg 11/07/17 06:39 11/07/17 07:06 Toradol Injection - IVPUSH 11/07/17 06:40 30 mg ONCE ONE Administration Metoclopramide HCl 10 mg 11/07/17 06:39 11/07/17 07:06 Reglan Injection - IVPUSH 11/07/17 06:40 10 mg ONCE ONE Administration Progress Note - Progress Note Progress Note: I have received report from FLORA Cesar regarding this patient. Pt's initial chief complaint: migraine headache x 18 hours Pt's work up completed prior to sign out: hcg Pt treatment given from prior staff: IV fluids, IV reglan, IV benadryl, IV toradol Pt plan to be completed:. will reassess Dispo: Pending Medical Decision Making - Medical Decision Making A/P: 48 y/o female with hx of migraines c/o left sided GUERRERO consistent with her usual migraines x 18 hours. Most recent head CT was 2 weeks ago performed by Dr. Graf. The patient was initially evaluated by FLORA Cesar. Patient was treated with IV fluids, IV reglan, IV benadryl, IV toradol. Will reassess and dispo accordingly. Patient states she feels much better. Will discharge to home with rx for medrol dose pack. Suggested she f/u with Dr. Graf this week and return to the ER with any worsening or concerning symptoms. The patient verbalizes understanding of all instructions, has no further questions and is awaiting discharge. *DC/Admit/Observation/Transfer Diagnosis at time of Disposition: Migraine - Discharge Dispostion Disposition: HOME Condition at time of disposition: Improved - Referrals Referrals: Gary Graf DO [Staff Physician] - Call tomorrow - Patient Instructions Printed Discharge Instructions: DI for Migraine Additional Instructions: Discharge Instructions: -A prescription for steroids has been sent to your pharmacy. Please take as prescribed -Call Dr. Graf tomorrow morning to schedule follow up appointment -Drink at least 64oz of water daily -Return to the ER with any worsening or concerning symptoms - Post Discharge Activity
[2017-11-07 10:17] VITALS: BP 156/93; PULSE 62
[2017-11-07 10:43] VITALS: TEMP 99.6
== END 2017-11-07 10:43 | disposition home or self-care (01) ==
LOC: JER 05:38
PROC: 3E033NZ Introduction of Analgesics, Hypnotics, Sedatives into Peripheral Vein, Percutaneous Approach (ICD-10-PCS; principal; 2017-11-07)
PROC: 3E033GC Introduction of Other Therapeutic Substance into Peripheral Vein, Percutaneous Approach (ICD-10-PCS; 2017-11-07)
PROC: 3E0337Z Introduction of Electrolytic and Water Balance Substance into Peripheral Vein, Percutaneous Approach (ICD-10-PCS; 2017-11-07)
DX: G43.909 Migraine, unspecified, not intractable, without status migrainosus (principal); K21.9 Gastro-esophageal reflux disease without esophagitis; F17.210 Nicotine dependence, cigarettes, uncomplicated
CPT/HCPCS: 81003; 81015; 84703; 99283-25; J7030

== ENCOUNTER 2019-02-08 17:10 | Emergency (ER) | payer OTHER ==
[2019-02-08 17:20] VITALS: BP 142/78; PULSE 76; TEMP 99; BMI 54.1
[2019-02-08] MEDS ORDERED: FLUORESCEIN NA 1 EA STRIP ONE (18:02)
--- NOTE | 2019-02-08 18:09 | PDOC ---
History of Present Illness - General Chief Complaint: Eye Problem Stated Complaint: EYE PROBLEM Time Seen by Provider: 02/08/19 17:32 History Source: Patient - History of Present Illness Timing/Duration: other (this am) Past History - Past Medical History Allergies/Adverse Reactions: Allergies Allergy/AdvReac Type Severity Reaction Status Date / Time No Known Allergies Allergy Verified 02/08/19 17:20 Home Medications: Ambulatory Orders Oxycodone HCl/Acetaminophen [Percocet 5-325 mg Tablet] 1 - 2 tab PO Q4H Sumatriptan Succinate [Imitrex -] 50 mg PO PRN 04/12/17 Docusate Sodium [Colace -] 100 mg PO TID #90 capsule 04/13/17 Methylprednisolone [Medrol Dose Robert] 4 mg PO ASDIR #21 tablet 11/07/17 Ciprofloxacin 0.3% Eye Drops [Ciloxan 0.3% Eye Drops -] 1 drop OU Q6H #1 bottle 02/08/19 Loratadine [Claritin] 10 mg PO DAILY #12 tablet 02/08/19 Anemia: No Asthma: No Cancer: No Cardiac Disorders: No CVA: No COPD: No CHF: No Dementia: No Diabetes: No GI Disorders: Yes (GERD) Disorders: No HTN: No Hypercholesterolemia: No Liver Disease: No Seizures: No Thyroid Disease: No - Surgical History Abdominal Surgery: Yes (gallbladder, csection x2 ) Appendectomy: No Cardiac Surgery: No Cholecystectomy: Yes Lung Surgery: No Neurologic Surgery: No Orthopedic Surgery: No - Immunization History Immunization Up to Date: Yes - Psycho Social/Smoking Cessation Hx Smoking History: Never smoked Have you smoked in the past 12 months: No Number of Cigarettes Smoked Daily: 6 If you are a former smoker, when did you quit?: 05/2016 Information on smoking cessation initiated: No 'Breaking Loose' booklet given: 02/06/15 Hx Alcohol Use: No Drug/Substance Use Hx: No Substance Use Type: None Hx Substance Use Treatment: No Review of Systems - Review of Systems HEENTM: No: Eye Pain, Blurred Vision, Tearing *Physical Exam - Vital Signs Last Vital Signs Temp Pulse Resp BP Pulse Ox 99 F 76 19 142/78 99 02/08/19 17:18 02/08/19 17:18 02/08/19 17:18 02/08/19 17:18 02/08/19 17:18 - Physical Exam General Appearance: Yes: Appropriately Dressed. No: Apparent Distress HEENT: positive: Normal Voice, Other (Significant conjunc erythema to R eye w/ yellow dicharge, L conjunc w/ minimal erythema, no chemosis, lid lesions, no uptake on wood slamp b/l) Neck: positive: Supple Respiratory/Chest: negative: Respiratory Distress Integumentary: positive: Dry, Warm Neurologic: positive: Fully Oriented, Alert, Normal Mood/Affect Medical Decision Making - Medical Decision Making 02/08/19 18:02 48-year-old female, morbidly obesed, chronic back pain, wears disposable contact lens that she sleeps in per pt, here with b/l conjunctival erythema and itching, R>>L, that started this morning. Also complaining of some discharge to right eye. No foreign body sensation, photophobia, tearing or visual changes see exam B/l conjunctivitis Wears contact lens No uptake on quintero lamp Dc w/ ciprodex, to also apply cold compresses and take oral antihistamine for possible allergic component To refrain from contact lens use until symptoms are resolved and to wear new contacts as discussed Discharge - Discharge Information Problems reviewed: Yes Clinical Impression/Diagnosis: Conjunctivitis Qualifiers: Conjunctivitis type: acute Acute conjunctivitis type: unspecified Laterality: bilateral Qualified Code(s): H10.33 - Unspecified acute conjunctivitis, bilateral Condition: Good Disposition: HOME - Follow up/Referral Referrals: Anna Gonzalez MD [Primary Care Provider] - - Patient Discharge Instructions Patient Printed Discharge Instructions: Conjunctivitis Additional Instructions: Your treated for possible bacterial vs allergic conjunctivitis Apply Ciprodex as directed. Apply cool compresses to lids and take Claritin as needed for itching Refrain from rubbing eyes as this can cause itching to worsen Refrain from wearing contact until symptoms have fully resolved and use new contact lens Return to ER as needed - Post Discharge Activity
[2019-02-08] MEDS ORDERED: LORATADINE 10 MG TABLET PO ONE (18:12)
[2019-02-08] MEDS ORDERED: LORATADINE 10 MG TABLET ONE (18:16)
== END 2019-02-08 18:23 | disposition home or self-care (01) ==
LOC: JERFT 17:10
DX: H10.33 Unspecified acute conjunctivitis, bilateral (principal); M54.89 Other dorsalgia; G89.29 Other chronic pain; E66.01 Morbid (severe) obesity due to excess calories; Z68.43 Body mass index [BMI] 50.0-59.9, adult
CPT/HCPCS: 99281-25

== ENCOUNTER 2021-01-17 18:38 | Emergency (ER) | payer OTHER ==
[2021-01-17 19:00] VITALS: BP 144/96; PULSE 100; TEMP 98.6; BMI 54.8
== END 2021-01-17 20:46 | disposition home or self-care (01) ==
LOC: JERFT 18:38
DX: M54.50 Low back pain, unspecified (principal)
CPT/HCPCS: 99283-25

== ENCOUNTER 2021-04-15 17:36 | Emergency (ER) | payer OTHER ==
[2021-04-15 18:00] VITALS: BP 140/94; PULSE 98; TEMP 98; BMI 55.2
[2021-04-15] MEDS ORDERED: hydrOXYzine PAMOATE 50 MG CAPSULE (FP) PO ONE (18:29)
[2021-04-15] MEDS ORDERED: hydrOXYzine PAMOATE 25 MG CAPSULE (FP) PO ONE (18:31)
[2021-04-15] MEDS ORDERED: methylPREDNISolone NA SUCC 125 MG/2 ML VIAL IVPUSH ONE (19:57)
[2021-04-15] MEDS ORDERED: FAMOTIDINE 20 MG/50 ML IVPB 20 MG/50 ML MG IVPB ONE ×2 (19:59→20:20)
[2021-04-15] MEDS ORDERED: methylPREDNISolone NA SUCC 125 MG/2 ML VIAL ONE (20:20)
[2021-04-15 21:12] LABS: BASO % 0.4 % (0-2.0); EOS % 3.1 % (0-4.5); HEMOGLOBIN 13.3 GM/dL (10.7-15.3); LYMPH % 21.5 % (8-40); MCHC 31.8 g/dl (32.0-36.0); MEAN CELL VOLUME 84.9 fl (80-96); MEAN PLT VOLUME 9.3 fl (7.5-11.1); MONO % 6.1 % (3.8-10.2); NEUT % 68.9 % (42.8-82.8); PLATELET COUNT 303 10^3/uL (134-434); RBC 4.94 M/mm3 (3.60-5.2); RDW 14.8 % (11.6-15.6); WHITE BLOOD COUNT 10.5 K/mm3 (4.0-10.0)
[2021-04-15 21:28] LABS: CHLORIDE 99 mmol/L (98-107); SODIUM 137 mmol/L (136-145)
[2021-04-15 21:29] LABS: CALCIUM 8.7 mg/dL (8.5-10.1)
[2021-04-15 21:30] LABS: ANION GAP 7 MMOL/L (8-16); BLOOD UREA NITROGEN 5.8 mg/dL (7-18); CALCIUM 8.8 mg/dL (8.5-10.1); CO2 31 mmol/L (21-32); GLUCOSE,RANDOM 279 mg/dL (74-106)
[2021-04-15 21:31] LABS: ALBUMIN 3.3 g/dl (3.4-5.0)
[2021-04-15 21:33] LABS: CREATININE 0.7 mg/dL (0.55-1.3)
[2021-04-15 21:35] LABS: BILIRUBIN,TOTAL 0.4 mg/dL (0.2-1); TOT PROT 7.3 g/dl (6.4-8.2)
== END 2021-04-15 22:25 | disposition home or self-care (01) ==
LOC: JER 17:36
PROC: 3E033GC Introduction of Other Therapeutic Substance into Peripheral Vein, Percutaneous Approach (ICD-10-PCS; principal; 2021-04-15)
PROC: 3E033GC Introduction of Other Therapeutic Substance into Peripheral Vein, Percutaneous Approach (ICD-10-PCS; 2021-04-15)
DX: R60.9 Edema, unspecified (principal)
CPT/HCPCS: 36415; 71046-TC-FY; 80048; 80053; 84484; 85025; 93005; 93010; 93970-TC; 96374; 96375; 99285-25

== ENCOUNTER 2021-05-19 16:34 | Inpatient (IN) | payer OTHER ==
[2021-05-19] MEDS ORDERED: SODIUM CHLORIDE 1,000 ML IV STA ×2 (18:16→23:00)
[2021-05-19] MEDS ORDERED: VANCOMYCIN 1 GM in D5W (PRE-DOCKED) 1,000 MG/250 ML IVPB ONE (18:16)
[2021-05-19] MEDS ORDERED: PIPERACILLIN/TAZOB 3.375 GM 3.375 GM in DEXTROSE 5%-WATER - 50 ML IVPB ONE (18:17)
[2021-05-19] MEDS ORDERED: ACETAMINOPHEN 1000 MG/100 ML BAG IVPB ONE (18:17)
[2021-05-19] MEDS ORDERED: VANCOMYCIN 1 GRAM (PRE-DOCKED) 1,000 MG/250 ML BAG IVPB ONE (19:55)
[2021-05-19] MEDS ORDERED: PIPERACILLIN/TAZOB 3.375 GM 3.375 GM/50 ML BAG IVPB ONE (19:55)
[2021-05-19] MEDS ORDERED: ACETAMINOPHEN INJECTION 100 ML IVPB ONE (19:55)
[2021-05-19 20:43] LABS: EPI CELLS 12 /uL (0-25.1); HYALINE CASTS 0 /uL (0-3.1); PH,URINE 5.5 (5.0-8.0); URINE APPEARANCE CLEAR; URINE BACTERIA 310 /uL (0-1359); URINE BILIRUBIN NEGATIVE (NEGATIVE); URINE COLOR ORANGE; URINE GLUCOSE (UA) 2+ (NEGATIVE); URINE KETONE NEGATIVE (NEGATIVE); URINE LEUK ESTERASE NEGATIVE (NEGATIVE); URINE NITRITE NEGATIVE (NEGATIVE); URINE PROTEIN 1+ (NEGATIVE); URINE RBC 14 /uL (0-23.9); URINE WBC 8 /uL (0-25.8)
[2021-05-19 20:46] LABS: INR 1.52 (0.83-1.09); PROTHROMBIN TIME (PATIENT) 17.6 SEC (9.7-13.0)
[2021-05-19 20:49] LABS: BASO % 0.4 % (0-2.0); EOS % 0.2 % (0-4.5); HEMATOCRIT 41.8 % (32.4-45.2); HEMOGLOBIN 13.6 GM/dL (10.7-15.3); LYMPH % 10.6 % (8-40); MCH 26.8 pg (25.7-33.7); MCHC 32.4 g/dl (32.0-36.0); MEAN CELL VOLUME 82.8 fl (80-96); MEAN PLT VOLUME 9.9 fl (7.5-11.1); MONO % 3.8 % (3.8-10.2); PLATELET COUNT 280 10^3/uL (134-434); RBC 5.05 M/mm3 (3.60-5.2); RDW 15.5 % (11.6-15.6); WHITE BLOOD COUNT 18.2 K/mm3 (4.0-10.0)
[2021-05-19 21:03] LABS: CALCIUM 8.8 mg/dL (8.5-10.1)
[2021-05-19 21:04] LABS: ALBUMIN 2.9 g/dl (3.4-5.0); BLOOD UREA NITROGEN 16.8 mg/dL (7-18)
[2021-05-19 21:09] LABS: BILIRUBIN,TOTAL 0.7 mg/dL (0.2-1); LACTIC ACID 2.1 mmol/L (0.4-2.0); TOT PROT 7.2 g/dl (6.4-8.2)
[2021-05-19] MEDS ORDERED: morphine CARPU-JECT 4 MG/1 ML DISP.SYRIN IVPUSH ONE (22:11)
[2021-05-19] MEDS ORDERED: POTASSIUM CHLORIDE TABS 20 MEQ TABLET.ER (FP) PO ONE (23:01)
[2021-05-20] MEDS ORDERED: POTASSIUM CHLORIDE TABS 20 MEQ TABLET.ER (FP) PO ONE (00:31)
[2021-05-20] MEDS ORDERED: morphine SULFATE 4 MG/ML VIAL ONE (00:31)
[2021-05-20] MEDS ORDERED: KETOROLAC TROMETHAMINE 30 MG/1 ML VIAL IVPB ONE (03:16)
[2021-05-20] MEDS ORDERED: ACETAMINOPHEN 1000 MG/100 ML BAG IVPB PRN (04:00)
[2021-05-20] MEDS ORDERED: CLINDAMYCIN 900 MG PREMIX IVPB 900 MG/50 ML BAG IVPB ONE (05:35)
[2021-05-20 06:01] VITALS: BMI 52.2
[2021-05-20] MEDS ORDERED: SODIUM CHLORIDE 1,000 ML IV SCH (07:15)
[2021-05-20] MEDS: INSULIN SLIDING SCALE (NOVOLOG) 1 VIAL SQ SCH ×5 (07:40→21:47)
[2021-05-20] MEDS ORDERED: DEXTROSE 5%-WATER - 50 ML IVPB ONE (09:04)
[2021-05-20] MEDS ORDERED: PIPERACILLIN/TAZOBACTAM 3.375 GM VIAL IVPB ONE (09:04)
[2021-05-20 09:06] LABS: BASO % 0.2 % (0-2.0); EOS % 0.9 % (0-4.5); HEMOGLOBIN 11.9 GM/dL (10.7-15.3); LYMPH % 8.1 % (8-40); MCH 26.7 pg (25.7-33.7); MCHC 32.1 g/dl (32.0-36.0); MEAN CELL VOLUME 83.2 fl (80-96); MEAN PLT VOLUME 9.7 fl (7.5-11.1); MONO % 6.2 % (3.8-10.2); NEUT % 84.6 % (42.8-82.8); PLATELET COUNT 220 10^3/uL (134-434); RBC 4.45 M/mm3 (3.60-5.2); RDW 15.5 % (11.6-15.6); WHITE BLOOD COUNT 13.2 K/mm3 (4.0-10.0)
[2021-05-20] MEDS ORDERED: SODIUM CHLORIDE 0.9% 500 ML INFUS.BAG IV ONE (09:16)
[2021-05-20] MEDS ORDERED: PROPOFOL 20 ML ONE ×4 (09:25)
[2021-05-20] MEDS ORDERED: LIDOCAINE HCL/PF 2% SDV 5ML VIAL ONE (09:26)
[2021-05-20] MEDS ORDERED: ROCURONIUM BROMIDE 50 MG/5 ML SYRINGE ONE (09:27)
[2021-05-20] MEDS ORDERED: SUCCINYLCHOLINE CHLORIDE 200 MG/10 ML SYRINGE ONE (09:27)
[2021-05-20] MEDS ORDERED: PHENYLEPHRINE HCL 10 MG/1 ML SINGLE DOSE VIAL ONE (09:28)
[2021-05-20] MEDS ORDERED: KETAMINE HCL 200 MG/20 ML VIAL ONE (09:34)
[2021-05-20] MEDS ORDERED: PIPERACILLIN/TAZOB 3.375 GM 3.375 GM in DEXTROSE 5%-WATER - 50 ML IVPB SCH (10:00)
[2021-05-20] MEDS ORDERED: VANCOMYCIN/WATER BAGS 1,250 MG/250 ML BAG IVPB SCH (10:00)
[2021-05-20] MEDS ORDERED: MIDAZOLAM HCL 2 MG/2 ML SINGLE DOSE VIAL ONE (10:01)
[2021-05-20 10:11] LABS: ALBUMIN 2.3 g/dl (3.4-5.0); CALCIUM 8.3 mg/dL (8.5-10.1)
[2021-05-20 10:12] LABS: BLOOD UREA NITROGEN 14.7 mg/dL (7-18)
[2021-05-20 10:15] LABS: CREATININE 0.7 mg/dL (0.55-1.3)
[2021-05-20 10:16] LABS: TOT PROT 5.9 g/dl (6.4-8.2)
[2021-05-20 10:19] LABS: BILIRUBIN,TOTAL 0.4 mg/dL (0.2-1)
[2021-05-20] MEDS ORDERED: VANCOMYCIN 1,000 MG VIAL (RESTRICTED TO ID ONLY) IVPB ONE (10:22)
[2021-05-20] MEDS ORDERED: KETOROLAC TROMETHAMINE 30 MG/1 ML VIAL ONE (10:56)
[2021-05-20] MEDS ORDERED: SODIUM HYPOCHLORITE 0.5% 473 ML- BULK BOTTLE TP ONE ×2 (11:00→11:53)
[2021-05-20] MEDS ORDERED: ONDANSETRON 4 MG/2 ML VIAL IVPUSH PRN ×2 (11:38→11:53)
[2021-05-20] MEDS ORDERED: ACETAMINOPHEN INJECTION 100 ML IVPB ONE (11:40)
[2021-05-20] MEDS ORDERED: ACETAMINOPHEN 1000 MG/100 ML BAG IVPB ONE ×2 (11:40)
[2021-05-20] MEDS ORDERED: PIPERACILLIN/TAZOB 4.5 GM 4.5 GM in DEXTROSE 5%-WATER 100 ML IVPB SCH (18:00)
[2021-05-20] MEDS ORDERED: CLINDAMYCIN 900 MG PREMIX IVPB 900 MG/50 ML BAG IVPB SCH (18:00)
[2021-05-20] MEDS ORDERED: PIPERACILLIN/TAZOBACTAM 4.5 GM VIAL IVPB ONE (18:20)
[2021-05-20] MEDS ORDERED: DEXTROSE 5%-WATER 100 ML IVPB ONE (18:21)
[2021-05-20] MEDS: SODIUM CHLORIDE 1,000 ML IV SCH (18:33)
[2021-05-20] MEDS: PIPERACILLIN/TAZOB 4.5 GM 4.5 GM in DEXTROSE 5%-WATER 100 ML IVPB SCH (18:33)
[2021-05-20] MEDS: KETOROLAC TROMETHAMINE 30 MG/1 ML VIAL IVPUSH SCH ×2 (18:34→22:53)
[2021-05-20] MEDS: ACETAMINOPHEN 500 MG TABLET (FP) PO SCH (18:35)
[2021-05-20] MEDS: CLINDAMYCIN 900 MG PREMIX IVPB 900 MG/50 ML BAG IVPB SCH (20:51)
[2021-05-20] MEDS: VANCOMYCIN PREMIX 1.5 GM 1,500 MG/300 ML BAG IVPB SCH (21:48)
[2021-05-20] MEDS: BUPRENORPHINE/NALOXONE 8 MG/2 MG FILM PACKET SL SCH (21:48)
[2021-05-20] MEDS ORDERED: BUPRENORPHINE/NALOXONE 8 MG/2 MG FILM PACKET SL SCH (22:00)
[2021-05-20] MEDS ORDERED: VANCOMYCIN PREMIX 1.5 GM 1,500 MG/300 ML BAG IVPB SCH (22:00)
[2021-05-21] MEDS ORDERED: DEXTROSE 5%-WATER 100 ML IVPB ONE ×3 (00:54→16:42)
[2021-05-21] MEDS ORDERED: PIPERACILLIN/TAZOBACTAM 4.5 GM VIAL IVPB ONE ×3 (00:54→16:42)
[2021-05-21] MEDS: ACETAMINOPHEN 500 MG TABLET (FP) PO SCH ×4 (01:39→18:18)
[2021-05-21] MEDS: CLINDAMYCIN 900 MG PREMIX IVPB 900 MG/50 ML BAG IVPB SCH ×3 (01:40→17:01)
[2021-05-21] MEDS: PIPERACILLIN/TAZOB 4.5 GM 4.5 GM in DEXTROSE 5%-WATER 100 ML IVPB SCH ×3 (01:41→18:17)
[2021-05-21] MEDS: KETOROLAC TROMETHAMINE 30 MG/1 ML VIAL IVPUSH SCH ×4 (06:01→23:16)
[2021-05-21] MEDS: INSULIN SLIDING SCALE (NOVOLOG) 1 VIAL SQ SCH ×4 (06:02→21:55)
[2021-05-21] MEDS: BUPRENORPHINE/NALOXONE 8 MG/2 MG FILM PACKET SL SCH ×2 (09:38→21:54)
[2021-05-21] MEDS: POTASSIUM CHLORIDE TABS 20 MEQ TABLET.ER (FP) PO SCH (09:38)
[2021-05-21] MEDS ORDERED: VANCOMYCIN/WATER BAGS 1,250 MG/250 ML BAG IVPB SCH (10:00)
[2021-05-21] MEDS ORDERED: PIPERACILLIN/TAZOB 3.375 GM 3.375 GM in DEXTROSE 5%-WATER - 50 ML IVPB SCH (10:00)
[2021-05-21] MEDS: ENOXAPARIN NA (PORCINE) 40 MG/0.4 ML DISP.SYRIN SQ SCH (11:17)
[2021-05-21] MEDS: VANCOMYCIN PREMIX 1.5 GM 1,500 MG/300 ML BAG IVPB SCH ×2 (12:10→21:56)
[2021-05-21] MEDS: SODIUM CHLORIDE 1,000 ML IV SCH (17:00)
[2021-05-21] MEDS: metFORMIN HCL 500 MG TABLET (FP) PO SCH (17:01)
[2021-05-21 18:12] LABS: BASO % 0.5 % (0-2.0); EOS % 3.2 % (0-4.5); HEMATOCRIT 37.6 % (32.4-45.2); HEMOGLOBIN 12.4 GM/dL (10.7-15.3); MCH 27.4 pg (25.7-33.7); MCHC 32.9 g/dl (32.0-36.0); MEAN CELL VOLUME 83.2 fl (80-96); MEAN PLT VOLUME 9.6 fl (7.5-11.1); MONO % 9.1 % (3.8-10.2); NEUT % 65.2 % (42.8-82.8); PLATELET COUNT 181 10^3/uL (134-434); RBC 4.52 M/mm3 (3.60-5.2); RDW 15.7 % (11.6-15.6); WHITE BLOOD COUNT 6.4 K/mm3 (4.0-10.0)
[2021-05-21 18:24] LABS: CALCIUM 8.4 mg/dL (8.5-10.1)
[2021-05-21 18:25] LABS: ALBUMIN 2.4 g/dl (3.4-5.0); BLOOD UREA NITROGEN 16.7 mg/dL (7-18)
[2021-05-21 18:28] LABS: CREATININE 0.9 mg/dL (0.55-1.3)
[2021-05-21 18:29] LABS: BILIRUBIN,TOTAL 0.4 mg/dL (0.2-1)
[2021-05-21 18:30] LABS: TOT PROT 6.4 g/dl (6.4-8.2)
[2021-05-21] MEDS: INSULIN (LEVEMIR) 100 UNITS/ML UNITS SQ SCH (21:55)
[2021-05-22] MEDS ORDERED: DEXTROSE 5%-WATER 100 ML IVPB ONE ×3 (01:39→15:38)
[2021-05-22] MEDS ORDERED: PIPERACILLIN/TAZOBACTAM 4.5 GM VIAL IVPB ONE ×3 (01:39→15:38)
[2021-05-22] MEDS: ACETAMINOPHEN 500 MG TABLET (FP) PO SCH ×4 (02:25→18:06)
[2021-05-22] MEDS: CLINDAMYCIN 900 MG PREMIX IVPB 900 MG/50 ML BAG IVPB SCH ×3 (02:26→17:47)
[2021-05-22] MEDS: PIPERACILLIN/TAZOB 4.5 GM 4.5 GM in DEXTROSE 5%-WATER 100 ML IVPB SCH ×3 (02:26→17:04)
[2021-05-22] MEDS: metFORMIN HCL 500 MG TABLET (FP) PO SCH ×2 (06:18→16:19)
[2021-05-22] MEDS: INSULIN SLIDING SCALE (NOVOLOG) 1 VIAL SQ SCH ×4 (06:19→22:19)
[2021-05-22] MEDS: BUPRENORPHINE/NALOXONE 8 MG/2 MG FILM PACKET SL SCH ×2 (09:16→22:19)
[2021-05-22] MEDS: ENOXAPARIN NA (PORCINE) 40 MG/0.4 ML DISP.SYRIN SQ SCH (09:16)
[2021-05-22] MEDS: POTASSIUM CHLORIDE TABS 20 MEQ TABLET.ER (FP) PO SCH (09:16)
[2021-05-22] MEDS ORDERED: IBUPROFEN 600 MG TABLET (FP) PO PRN (09:43)
[2021-05-22] MEDS: VANCOMYCIN PREMIX 1.5 GM 1,500 MG/300 ML BAG IVPB SCH ×2 (11:16→22:47)
[2021-05-22 14:42] LABS: BASO % 0.4 % (0-2.0); EOS % 3.3 % (0-4.5); HEMATOCRIT 37.5 % (32.4-45.2); HEMOGLOBIN 12.1 GM/dL (10.7-15.3); LYMPH % 24.4 % (8-40); MCH 26.8 pg (25.7-33.7); MCHC 32.2 g/dl (32.0-36.0); MEAN PLT VOLUME 9.7 fl (7.5-11.1); MONO % 11.2 % (3.8-10.2); NEUT % 60.7 % (42.8-82.8); PLATELET COUNT 172 10^3/uL (134-434); RBC 4.52 M/mm3 (3.60-5.2); RDW 15.8 % (11.6-15.6); WHITE BLOOD COUNT 6.2 K/mm3 (4.0-10.0)
[2021-05-22 15:05] LABS: CALCIUM 8.3 mg/dL (8.5-10.1)
[2021-05-22 15:06] LABS: ALBUMIN 2.3 g/dl (3.4-5.0); BLOOD UREA NITROGEN 13.2 mg/dL (7-18)
[2021-05-22 15:09] LABS: CREATININE 0.8 mg/dL (0.55-1.3)
[2021-05-22 15:10] LABS: BILIRUBIN,TOTAL 0.4 mg/dL (0.2-1); TOT PROT 6.3 g/dl (6.4-8.2)
[2021-05-22] MEDS: INSULIN (LEVEMIR) 100 UNITS/ML UNITS SQ SCH (22:19)
[2021-05-23] MEDS ORDERED: DEXTROSE 5%-WATER 100 ML IVPB ONE ×3 (00:57→17:10)
[2021-05-23] MEDS ORDERED: PIPERACILLIN/TAZOBACTAM 4.5 GM VIAL IVPB ONE ×3 (00:57→17:10)
[2021-05-23] MEDS: CLINDAMYCIN 900 MG PREMIX IVPB 900 MG/50 ML BAG IVPB SCH ×2 (01:01→11:46)
[2021-05-23] MEDS: ACETAMINOPHEN 500 MG TABLET (FP) PO SCH ×4 (01:02→18:49)
[2021-05-23] MEDS: PIPERACILLIN/TAZOB 4.5 GM 4.5 GM in DEXTROSE 5%-WATER 100 ML IVPB SCH ×3 (01:02→17:43)
[2021-05-23] MEDS: INSULIN SLIDING SCALE (NOVOLOG) 1 VIAL SQ SCH ×4 (06:05→21:42)
[2021-05-23] MEDS: metFORMIN HCL 500 MG TABLET (FP) PO SCH ×2 (06:07→17:43)
[2021-05-23] MEDS: POTASSIUM CHLORIDE TABS 20 MEQ TABLET.ER (FP) PO SCH (11:02)
[2021-05-23] MEDS: ENOXAPARIN NA (PORCINE) 40 MG/0.4 ML DISP.SYRIN SQ SCH (11:02)
[2021-05-23] MEDS: BUPRENORPHINE/NALOXONE 8 MG/2 MG FILM PACKET SL SCH ×2 (11:03→21:42)
[2021-05-23] MEDS: VANCOMYCIN PREMIX 1.5 GM 1,500 MG/300 ML BAG IVPB SCH (12:34)
[2021-05-23] MEDS: INSULIN (LEVEMIR) 100 UNITS/ML UNITS SQ SCH (21:42)
[2021-05-24] MEDS ORDERED: PIPERACILLIN/TAZOBACTAM 4.5 GM VIAL IVPB ONE ×2 (01:17→08:19)
[2021-05-24] MEDS ORDERED: DEXTROSE 5%-WATER 100 ML IVPB ONE ×2 (01:17→08:19)
[2021-05-24] MEDS: ACETAMINOPHEN 500 MG TABLET (FP) PO SCH ×2 (01:29→06:10)
[2021-05-24] MEDS: PIPERACILLIN/TAZOB 4.5 GM 4.5 GM in DEXTROSE 5%-WATER 100 ML IVPB SCH ×2 (01:29→09:01)
[2021-05-24] MEDS: metFORMIN HCL 500 MG TABLET (FP) PO SCH (06:09)
[2021-05-24] MEDS: INSULIN SLIDING SCALE (NOVOLOG) 1 VIAL SQ SCH ×2 (06:10→11:44)
[2021-05-24] MEDS: ENOXAPARIN NA (PORCINE) 40 MG/0.4 ML DISP.SYRIN SQ SCH (09:02)
[2021-05-24] MEDS: POTASSIUM CHLORIDE TABS 20 MEQ TABLET.ER (FP) PO SCH (09:02)
[2021-05-24] MEDS: BUPRENORPHINE/NALOXONE 8 MG/2 MG FILM PACKET SL SCH (09:02)
[2021-05-24 12:01] VITALS: BP 139/75; PULSE 64; TEMP 98.6
== END 2021-05-24 12:36 | disposition home health service (06) | DRG 720 ==
LOC: JER 16:34 → JERBED 21:02 → J7W 05-20 04:19
PROVIDERS: ADMIT Internal Medicine; ATTEND Internal Medicine
PROC: 0Y9C00Z Drainage of Right Upper Leg with Drainage Device, Open Approach (ICD-10-PCS; 2021-05-20)
PROC: 0JBL0ZZ Excision of Right Upper Leg Subcutaneous Tissue and Fascia, Open Approach (ICD-10-PCS; principal; 2021-05-20 09:00)
DX: A41.9 Sepsis, unspecified organism (principal); L03.115 Cellulitis of right lower limb; K21.9 Gastro-esophageal reflux disease without esophagitis; E11.65 Type 2 diabetes mellitus with hyperglycemia; Z86.16 Personal history of COVID-19; E66.01 Morbid (severe) obesity due to excess calories; M72.6 Necrotizing fasciitis; Z68.43 Body mass index [BMI] 50.0-59.9, adult
CPT/HCPCS: 36415; 73701-TC-RT; 80053; 81003; 82962; 83036; 83605; 84703; 85025; 85610; 87040; 87070; 87076; 87077; 87086; 87205; 93005; 93010; 94760; 97116-GP; 97161-GP; 99285-25; C9803; G0480; U0003; U0005

== ENCOUNTER 2022-07-13 07:27 | Emergency (ER) | payer OTHER ==
[2022-07-13 07:43] VITALS: BP 142/80; PULSE 86; RESP 16; TEMP 98.7; BMI 56.3
[2022-07-13] MEDS ORDERED: ACETAMINOPHEN 1000 MG/100 ML BAG IVPB ONE (08:39)
[2022-07-13] MEDS ORDERED: FAMOTIDINE 20 MG/50 ML IVPB 20 MG/50 ML MG IVPB ONE ×2 (08:39→09:27)
[2022-07-13] MEDS ORDERED: ACETAMINOPHEN INJECTION 100 ML IVPB ONE (09:27)
[2022-07-13 10:25] LABS: BASO % 0.5 % (0-2.0); EOS % 2.7 % (0-4.5); HEMATOCRIT 41.5 % (32.4-45.2); HEMOGLOBIN 13.7 GM/dL (10.7-15.3); LYMPH % 22.4 % (8-40); MCH 27.3 pg (25.7-33.7); MCHC 33.1 g/dl (32.0-36.0); MEAN CELL VOLUME 82.6 fl (80-96); MEAN PLT VOLUME 8.8 fl (7.5-11.1); MONO % 5.7 % (3.8-10.2); NEUT % 68.7 % (42.8-82.8); PH,URINE 7.5 (5.0-8.0); PLATELET COUNT 285 10^3/uL (134-434); RBC 5.02 M/mm3 (3.60-5.2); RDW 16.1 % (11.6-15.6); URINE APPEARANCE CLEAR; URINE BILIRUBIN NEGATIVE (NEGATIVE); URINE COLOR YELLOW; URINE GLUCOSE (UA) NEGATIVE (NEGATIVE); URINE KETONE NEGATIVE (NEGATIVE); URINE LEUK ESTERASE NEGATIVE (NEGATIVE); URINE NITRITE NEGATIVE (NEGATIVE); URINE PROTEIN NEGATIVE (NEGATIVE); WHITE BLOOD COUNT 10.5 K/mm3 (4.0-10.0)
[2022-07-13 10:53] LABS: ALBUMIN 3.2 g/dl (3.4-5.0); BLOOD UREA NITROGEN 6.6 mg/dL (7-18)
[2022-07-13 10:56] LABS: CREATININE 0.6 mg/dL (0.55-1.3)
[2022-07-13 10:57] LABS: TOT PROT 7.7 g/dl (6.4-8.2)
[2022-07-13 11:16] LABS: BILIRUBIN,TOTAL 0.4 mg/dL (0.2-1)
== END 2022-07-13 15:10 | disposition home or self-care (01) ==
LOC: JER 07:27
PROC: 3E033GC Introduction of Other Therapeutic Substance into Peripheral Vein, Percutaneous Approach (ICD-10-PCS; principal; 2022-07-13)
PROC: 3E033NZ Introduction of Analgesics, Hypnotics, Sedatives into Peripheral Vein, Percutaneous Approach (ICD-10-PCS; 2022-07-13)
DX: R10.9 Unspecified abdominal pain (principal); R11.0 Nausea; R60.0 Localized edema
CPT/HCPCS: 36415; 74177-TC; 80053; 81003; 83690; 83880; 85025; 87086; 99285-25; Q9967

== ENCOUNTER 2023-03-09 06:13 | Emergency (ER) | payer OTHER ==
[2023-03-09 06:19] VITALS: TEMP 99.2; BMI 51.3
[2023-03-09] MEDS ORDERED: ONDANSETRON 4 MG/2 ML VIAL IVPUSH ONE (08:13)
[2023-03-09] MEDS ORDERED: ACETAMINOPHEN 1000 MG/100 ML BAG IVPB ONE (08:13)
[2023-03-09] MEDS ORDERED: FAMOTIDINE 20 MG/50 ML IVPB 20 MG/50 ML MG IVPB ONE ×2 (08:13→08:33)
[2023-03-09] MEDS ORDERED: LACTATED RINGERS SOLUTION 1000 ML INFUS.BAG IV ONE (08:13)
[2023-03-09] MEDS ORDERED: MAG HYDROX/AL HYDROX/SIMETH 30 ML UNIT-DOSE CUP PO ONE (08:13)
[2023-03-09] MEDS ORDERED: MAG HYDROX/AL HYDROX/SIMETH 30 ML UNIT-DOSE CUP ONE (08:33)
[2023-03-09] MEDS ORDERED: ONDANSETRON 4 MG/2 ML VIAL ONE (08:33)
[2023-03-09] MEDS ORDERED: ACETAMINOPHEN INJECTION 100 ML IVPB ONE ×2 (08:33→08:53)
[2023-03-09 09:42] LABS: EOS % 0.3 % (0-4.5); HEMATOCRIT 47.9 % (32.4-45.2); HEMOGLOBIN 15.8 GM/dL (10.7-15.3); LYMPH % 16.9 % (8-40); MCH 28.6 pg (25.7-33.7); MEAN CELL VOLUME 86.6 fl (80-96); MEAN PLT VOLUME 9.4 fl (7.5-11.1); MONO % 4.5 % (3.8-10.2); NEUT % 77.3 % (42.8-82.8); PLATELET COUNT 276 10^3/uL (134-434); RBC 5.53 M/mm3 (3.60-5.2); RDW 14.9 % (11.6-15.6); WHITE BLOOD COUNT 12.2 K/mm3 (4.0-10.0)
[2023-03-09 10:04] LABS: POTASSIUM 3.8 mmol/L (3.5-5.1)
[2023-03-09 10:06] LABS: CALCIUM 9.4 mg/dL (8.5-10.1)
[2023-03-09 10:07] LABS: ALBUMIN 3.7 g/dl (3.4-5.0); BLOOD UREA NITROGEN 5.9 mg/dL (7-18)
[2023-03-09 10:10] LABS: CREATININE 0.7 mg/dL (0.55-1.3)
[2023-03-09 10:11] LABS: BILIRUBIN,TOTAL 0.9 mg/dL (0.2-1); TOT PROT 8.1 g/dl (6.4-8.2)
[2023-03-09] MEDS ORDERED: KETOROLAC TROMETHAMINE 15 MG/ML VIAL IVPUSH ONE (12:12)
[2023-03-09 12:49] VITALS: BP 130/92; PULSE 73; RESP 18
== END 2023-03-09 12:49 | disposition home or self-care (01) ==
LOC: JER 06:13
PROC: 3E033GC Introduction of Other Therapeutic Substance into Peripheral Vein, Percutaneous Approach (ICD-10-PCS; principal; 2023-03-09)
PROC: 3E033GC Introduction of Other Therapeutic Substance into Peripheral Vein, Percutaneous Approach (ICD-10-PCS; 2023-03-09)
PROC: 3E033GC Introduction of Other Therapeutic Substance into Peripheral Vein, Percutaneous Approach (ICD-10-PCS; 2023-03-09)
DX: R10.84 Generalized abdominal pain (principal); K42.9 Umbilical hernia without obstruction or gangrene; R11.2 Nausea with vomiting, unspecified; Z20.822 Contact with and (suspected) exposure to COVID-19
CPT/HCPCS: 0241U-QW; 36415; 74177-TC; 80053; 83690; 83735; 84703; 85025; 99285-25; Q9967

== ENCOUNTER 2024-08-30 20:29 | Inpatient (IN) | payer OTHER ==
[2024-08-30 20:57] VITALS: BMI 54.8
[2024-08-30] MEDS ORDERED: ACETAMINOPHEN INJECTION 100 ML ONE (22:15)
[2024-08-30] MEDS: ACETAMINOPHEN 1000 MG/100 ML BAG IVPB ONE (22:32)
[2024-08-30 22:37] LABS: ABSOLUTE IMMATURE GRANULOCYTES 0.07 x10^3/uL (0.0-0.031); BASOPHILS # 0.03 x10^3/uL (0.01-0.08); EOSINOPHIL % 2.1 % (0.7-5.8); EOSINOPHILS # 0.25 x10^3/uL (0.04-0.36); HEMATOCRIT 43.2 % (34.1-44.9); HEMOGLOBIN 13.5 g/dL (11.2-15.7); MCHC 31.3 g/dl (32.2-35.5); MEAN CELL VOLUME 93.5 fl (79.4-94.8); MEAN PLT VOLUME 10.9 fl (9.4-12.3); MONOCYTE # 0.95 x10^3/uL (0.24-0.86); MONOCYTE % 8.1 % (4.7-12.5); PLATELET COUNT 259 x10^3/uL (182-369); RDW 14.7 % (12.3-16.6)
[2024-08-30 22:47] LABS: INR 1.42 (0.83-1.09); PROTHROMBIN TIME (PATIENT) 15.6 SEC (9.7-13.0)
[2024-08-30 22:50] LABS: ACTIVATED PTT 27.5 SECONDS (25.2-36.5)
[2024-08-30 23:07] LABS: POTASSIUM 3.4 mmol/L (3.5-5.1)
[2024-08-30 23:09] LABS: ALBUMIN 3.3 g/dl (3.4-5.0); CALCIUM 9.4 mg/dL (8.5-10.1)
[2024-08-30 23:10] LABS: BLOOD UREA NITROGEN 10.4 mg/dL (7-18)
[2024-08-30 23:13] LABS: CREATININE 0.7 mg/dL (0.55-1.3)
[2024-08-30 23:14] LABS: BILIRUBIN,TOTAL 0.9 mg/dL (0.2-1); TOT PROT 7.7 g/dl (6.4-8.2)
[2024-08-31] MEDS ORDERED: VANCOMYCIN 1 GM PREMIX (F) 1 GM/200 ML BAG ONE (00:43)
[2024-08-31] MEDS ORDERED: PIPERACILLIN/TAZOB 3.375 GM 3.375 GM/50 ML BAG IVPB ONE ×3 (00:43→15:31)
[2024-08-31] MEDS: PIPERACILLIN/TAZOB 3.375 GM 3.375 GM in DEXTROSE 5%-WATER - 50 ML IVPB ONE (00:45)
[2024-08-31] MEDS: VANCOMYCIN 1,000 MG in DEXTROSE 5%-WATER - 250 ML IVPB ONE (01:59)
[2024-08-31] MEDS ORDERED: KETOROLAC TROMETHAMINE 30 MG/1 ML VIAL ONE (03:01)
[2024-08-31] MEDS ORDERED: ACETAMINOPHEN 1000 MG/100 ML BAG IVPB PRN (03:07)
[2024-08-31] MEDS ORDERED: KETOROLAC TROMETHAMINE 30 MG/1 ML VIAL IVPUSH PRN (03:09)
[2024-08-31] MEDS: POTASSIUM CHLORIDE TABS 20 MEQ TABLET.ER (FP) PO ONE (03:13)
[2024-08-31] MEDS: KETOROLAC TROMETHAMINE 30 MG/1 ML VIAL IVPUSH ONE (03:13)
[2024-08-31 04:08] LABS: ARTERIAL BLD GAS O2 SATURATION 89.9 % (95-98); ARTERIAL BLOOD GAS BASE EXCESS 1.4 mmol/L (-2-2); ARTERIAL BLOOD GAS PO2 54.5 mmHg (80-100)
[2024-08-31 04:13] LABS: PH,URINE 6.5 (5.0-8.0); URINE APPEARANCE CLEAR; URINE BILIRUBIN 1+ (NEGATIVE); URINE COLOR DK YELLOW; URINE GLUCOSE (UA) NEGATIVE (NEGATIVE); URINE KETONE TRACE (NEGATIVE); URINE LEUK ESTERASE NEGATIVE (NEGATIVE); URINE NITRITE NEGATIVE (NEGATIVE); URINE PROTEIN TRACE (NEGATIVE)
[2024-08-31 04:14] LABS: ALLENS TEST POSITIVE
[2024-08-31 04:22] LABS: COCAINE, UR NEGATIVE (NEGATIVE); URINE BARBITURATES NEGATIVE (NEGATIVE)
[2024-08-31 04:23] LABS: OPIATES, URI NEGATIVE (NEGATIVE); PHENCYCLIDINE,URINE NEGATIVE (NEGATIVE); URINE AMPHETAMINES NEGATIVE (NEGATIVE)
[2024-08-31 04:26] LABS: METHADONE, UR POSITIVE (NEGATIVE); URINE BENZODIAZEPINES POSITIVE (NEGATIVE)
[2024-08-31] MEDS ORDERED: ALBUTEROL SO4 HFA INHALER IH PRN (04:45)
[2024-08-31 07:06] LABS: ABSOLUTE IMMATURE GRANULOCYTES 0.06 x10^3/uL (0.0-0.031); BASOPHILS # 0.03 x10^3/uL (0.01-0.08); EOSINOPHIL % 1.4 % (0.7-5.8); EOSINOPHILS # 0.14 x10^3/uL (0.04-0.36); HEMATOCRIT 38.6 % (34.1-44.9); HEMOGLOBIN 12.3 g/dL (11.2-15.7); MCHC 31.9 g/dl (32.2-35.5); MEAN CELL VOLUME 91.9 fl (79.4-94.8); MEAN PLT VOLUME 11.1 fl (9.4-12.3); MONOCYTE # 0.37 x10^3/uL (0.24-0.86); MONOCYTE % 3.8 % (4.7-12.5); PLATELET COUNT 189 x10^3/uL (182-369); RDW 14.7 % (12.3-16.6)
[2024-08-31 07:23] LABS: POTASSIUM 3.7 mmol/L (3.5-5.1)
[2024-08-31] MEDS: INSULIN ASPART SLIDING SCALE (NOVOLOG) 1 VIAL SQ SCH (07:25)
[2024-08-31 07:28] LABS: ALBUMIN 2.7 g/dl (3.4-5.0)
[2024-08-31 07:29] LABS: BLOOD UREA NITROGEN 10.3 mg/dL (7-18)
[2024-08-31 07:31] LABS: PHOSPHOROUS 4.1 mg/dL (2.5-4.9)
[2024-08-31 07:32] LABS: CREATININE 0.6 mg/dL (0.55-1.3)
[2024-08-31 07:33] LABS: BILIRUBIN,TOTAL 1.2 mg/dL (0.2-1); TOT PROT 6.5 g/dl (6.4-8.2)
[2024-08-31] MEDS ORDERED: INSULIN GLARGINE (LANTUS) 100 UNITS/ML UNITS SQ ONE (08:03)
[2024-08-31] MEDS: INSULIN GLARGINE (LANTUS) 100 UNITS/ML UNITS SQ SCH (08:11)
[2024-08-31] MEDS: PIPERACILLIN/TAZOB 3.375 GM 3.375 GM in DEXTROSE 5%-WATER - 50 ML IVPB SCH (08:11)
[2024-08-31] MEDS ORDERED: PIPERACILLIN/TAZOB 3.375 GM 3.375 GM in DEXTROSE 5%-WATER - 50 ML IVPB SCH (09:00)
[2024-08-31] MEDS ORDERED: FUROSEMIDE 40 MG TABLET (FP) ONE (10:37)
[2024-08-31] MEDS ORDERED: ENOXAPARIN NA (PORCINE) 40 MG/0.4 ML DISP.SYRIN SQ ONE (10:37)
[2024-08-31] MEDS ORDERED: methaDONE HCL 40 MG DISPERSABLE TABLET ONE (10:40)
[2024-08-31] MEDS ORDERED: methaDONE HCL 10 MG TABLET ONE (10:41)
[2024-08-31] MEDS: FUROSEMIDE 40 MG TABLET (FP) PO SCH (10:58)
[2024-08-31] MEDS: ENOXAPARIN NA (PORCINE) 40 MG/0.4 ML DISP.SYRIN SQ SCH (10:58)
[2024-08-31] MEDS ORDERED: VANCOMYCIN HCL 1,500 MG in DEXTROSE 5%-WATER - 250 ML IVPB SCH (12:00)
[2024-08-31] MEDS ORDERED: VANCOMYCIN PREMIX 1.5 GM 1,500 MG/300 ML BAG IVPB SCH (12:00)
[2024-08-31] MEDS: methaDONE HCL 40 MG DISPERSABLE TABLET PO SCH (15:51)
[2024-08-31 20:11] VITALS: BP 108/55; PULSE 84; RESP 18; TEMP 98.1
== END 2024-08-31 20:10 | disposition short-term general hospital (02) | DRG 344 ==
LOC: JER 20:29 → OBSVTOIN 08-31 02:02 → JERBED 08-31 02:02
PROVIDERS: ADMIT Internal Medicine
DX: E11.621 Type 2 diabetes mellitus with foot ulcer (principal); L97.429 Non-pressure chronic ulcer of left heel and midfoot with unspecified severity; F11.20 Opioid dependence, uncomplicated; L03.116 Cellulitis of left lower limb; E66.01 Morbid (severe) obesity due to excess calories; E11.69 Type 2 diabetes mellitus with other specified complication; M86.8X7 Other osteomyelitis, ankle and foot; E78.5 Hyperlipidemia, unspecified; F17.210 Nicotine dependence, cigarettes, uncomplicated; K21.9 Gastro-esophageal reflux disease without esophagitis; Z68.43 Body mass index [BMI] 50.0-59.9, adult; F19.10 Other psychoactive substance abuse, uncomplicated; E88.09 Other disorders of plasma-protein metabolism, not elsewhere classified; F41.9 Anxiety disorder, unspecified; M54.50 Low back pain, unspecified
CPT/HCPCS: 36415; 36600; 73610-TC-LT-FY; 73630-TC-LT; 80053; 80307; 81003; 82803; 82962; 83735; 84100; 85025; 85610; 85651; 85730; 86140; 86850; 86900; 86901; 87040; 99285-25; J0131